=== PATIENT | female | born 1960 | race Caucasian/White ===

== ENCOUNTER 2017-02-04 08:20 | Day surgery (SDC) | payer BC ==
[~2017-02-04 08:20] MED LIST: Lactated Ringers 1,000 ML IV SCH; Lidocaine 1% 2 ML SDV ONE; Lidocaine 1%/Sod Bicarbonate in NS 8.4% 1 ML Syringe IV PRN; Midazolam 1 MG/ML 2 ML SDV ONE; Propofol 200 MG/20 ML SDV ONE; Sodium Chloride 0.9% 10 ML Syringe FLUSH PRN; fentaNYL 100 MCG/2 ML SDV ONE
--- NOTE | 2017-02-04 08:51 | PCM.PREANE ---
Preanesthetic Assessment - Anesthesia/Transfusion/Family Hx Type of Transfusion Reactions: Reports: Unknown - Physical Assessment Height: 1.65 m Weight: 113.398 kg - Allergies Allergies/Adverse Reactions: Allergies Allergy/AdvReac Type Severity Reaction Status Date / Time amoxicillin Allergy Hives Verified 02/03/17 15:14 amoxicillin trihydrate Allergy Hives Verified 12/30/16 18:17 [From Augmentin] potassium clavulanate Allergy Hives Verified 12/30/16 18:17 [From Augmentin] PreAnesthesia Questionnaire HEENT History: Reports: Impaired vision, Sinusitis, Other (see below) Other HEENT History: pharyngitis, wears glasses Cardiovascular History: Reports: High cholesterol, Hypertension Respiratory History: Reports: Other (see below) Other Respiratory History: cough Gastrointestinal History: Reports: Other (see below) 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 (see below) Other OB/BYN History: hot flashes Musculoskeletal History: Reports: Other (see below) Other Musculoskeletal History: R foot pain, back pain, R knee pain Neurological History: Reports: None Psychiatric History: Reports: Anxiety, Depression Endocrine/Metabolic History: Reports: None Hematologic History: Reports: Anemia Immunologic History: Reports: None Oncologic (Cancer) History: Reports: None Dermatologic History: Reports: Other (see below) Other Dermatologic History: eczema, sebaceous cyst, viral warts, plantar wart - Infectious Disease History Infectious Disease History: Reports: Chicken pox - Past Surgical History Head Surgeries/Procedures: Reports: None HEENT Surgical History: Reports: Tonsillectomy GI Surgical History: Reports: Appendectomy, Bariatric procedure, Cholecystectomy , Other (see below) Other GI Surgeries/Procedures: Lapband Female Surgical History: Reports: Hysterectomy, Oophorectomy, Tubal ligation Musculoskeletal Surgical History: Reports: Arthroscopic knee, Other (see below) Other Musculoskeletal Surgeries/Procedures:: right elbow surgery-pinches nerve, knee surgery - SUBSTANCE USE Smoking Status *Q: Never Smoker Second Hand Smoke Exposure: No Days Per Week of Alcohol Use: 7 Recreational Drug Use History: No - HOME MEDS Home Medications: Home Meds Enalapril Maleate [Enalapril Maleate] 20 mg PO DAILY 02/03/17 [History] - CURRENT (IN HOUSE) MEDS Current Meds: Current Medications Lactated Ringer's (Ringers, Lactated) 1,000 mls @ 125 mls/hr IV ASDIRECTED DARIA Lidocaine/Sodium Bicarbonate (Buffered Lidocaine 1% In Ns 8.4%) 0.25 ml IV ONETIME PRN PRN Reason: Prior to IV Start Sodium Chloride (Saline Flush) 10 ml FLUSH ASDIRECTED PRN PRN Reason: Keep Vein Open Discontinued Medications Fentanyl (Sublimaze) Confirm Administered Dose 100 mcg .ROUTE .STK-MED ONE Stop: 02/04/17 07:48 Lidocaine HCl (Lidocaine 1%) Confirm Administered Dose 6 ml .ROUTE .STK-MED ONE Stop: 02/04/17 07:47 Midazolam HCl (Versed 1 Mg/Ml) Confirm Administered Dose 2 mg .ROUTE .STK-MED ONE Stop: 02/04/17 07:48 Propofol (Diprivan 20 Ml) Confirm Administered Dose 200 mg .ROUTE .STK-MED ONE Stop: 02/04/17 07:48 Preanesthetic Assessment - ANESTHESIA/TRANSFUSION/FAMILY HX Anesthesia/Transfusion History: No Prior Transfusion(s), Prior Anesthesia (+ PONV from hand surgery & slow to wake up from gallbladder surgery) Type of Anesthesia Reaction: Denies: Allergy, Anesthesia Awareness, Excessive Somnolence, Excessive Nausea/Vomiting, Excessive Itching, Excessive Shivering, Malignant Hyperthermia, Malignant Hyperthermia, Family History, Pseudocholinesterase Deficiency, Pseudocholinesterase Deficiency, Family History of, Urinary Retention, Unknown, Other (see below) Family History of Anesthesia Reaction: No Intubation History: Unknown Type of Transfusion Reactions: Reports: Unknown - REVIEW OF SYSTEMS Constitutional: Reports: no symptoms 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 Respiratory: Reports: no symptoms (quit smoking 21 years ago.) Cardiovascular: Reports: blood pressure problem, dyspnea on exertion GI: Reports: no symptoms (laparoscopic gastric banding noted.) Other: Reports: Easy Bruising - PHYSICAL ASSESSMENT HR: 81 O2 Sat by Pulse Oximetry: 95 RR: 16 BP: 120/76 Temp: 36.7 C Height: 1.65 m Weight: 113.852 kg NPO Status Date: 02/03/17 NPO Status Time: 23:35 ASA Class: 3 Mental Status: Alert & Oriented x3 Airway Class: Mallampati = 2 Dentition: Reports: Gillis(s), Missing Tooth/Teeth Thyro-Mental Finger Breadths: 3 Mouth Opening Finger Breadths: 3 ROM/Head Extension: Full Respiratory Status: lungs clear to auscultation bilaterally Cardiovascular Status: regular rate & rhythm, normal S1, S2, no murmur, blood pressure WNL - ALLERGIES Allergies/Adverse Reactions: Allergies Allergy/AdvReac Type Severity Reaction Status Date / Time amoxicillin Allergy Hives Verified 02/03/17 15:14 amoxicillin trihydrate Allergy Hives Verified 12/30/16 18:17 [From Augmentin] potassium clavulanate Allergy Hives Verified 12/30/16 18:17 [From Augmentin] - ANESTHESIA PLAN Preop Beta Ivanna: No Anesthesia Type Planned: MAC - ACKNOWLEDGEMENTS Pt an Appropriate Candidate for the Planned Anesthesia: Yes Alternatives and Risks of Anesthesia Discussed w Pt/Guardian: Yes Pt/Guardian Understands and Agrees with Anesthesia Plan: Yes
[2017-02-04] MEDS ORDERED: Lactated Ringers 1,000 ML ONE (10:41)
[2017-02-04] MEDS ORDERED: Propofol 200 MG/20 ML SDV ONE (10:46)
--- NOTE | 2017-02-04 10:52 | PCM48HPAN ---
Post Anesthesia Note - EVALUATION WITHIN 48HRS OF ANESTHETIC Vital Signs in Normal Range: Yes Patient Participated in Evaluation: Yes Respiratory Function Stable: Yes Airway Patent: Yes Cardiovascular Function Stable: Yes Hydration Status Stable: Yes Pain Control Satisfactory: Yes Nausea and Vomiting Control Satisfactory: Yes Mental Status Recovered: Yes
--- NOTE | 2017-02-04 10:52 | PCM.OPNOTE ---
- General Post-Op/Procedure Note Date of Surgery/Procedure: 02/04/17 Operative Procedure(s): 1. EGD with antral and GE junction biopsies x2 using cold forceps for each. 2. Colonoscopy with random rectal biopsies x2 and cold forceps Findings: 1. normal EGD 2. internal hemorrhoids otherwise normal colon Pre Op Diagnosis: 1. epigastric abdominal pain intermittent. 2. change in bowel habits Post-Op Diagnosis: internal hemorrhoids Anesthesia Technique: MAC, Moderate sedation Primary Surgeon: Romeo Corrales Pathology: 1. antral and GE junction biopsies 2. random rectal biopsies EBL in mLs: 0 Complications: None Condition: Good Free Text/Narrative:: After adequate IV sedation and analgesia was obtained the patient was placed on her left side. Through a bite block a lubricated upper endoscope was inserted into the esophagus and advanced towards the stomach without difficulty. Air was given here. The scope was then directed through the antrum and into the duodenum. The second, and first part sof the duodenum were endoscopically normal with no inflammation or inflammatory changes. The antrum and body of the stomach were unremarkable as well. In the retroflexed view there was no hiatal hernia. The fundus and cardiac, regions were unremarkable. I took 2 random biopsies of the antrum for histologic review. The scope was withdrawn to the GE junction, which were sharp. This area was normal, but I took 2 biopsies for histology. Gear Shaper Set Up Operator photographs were taken for the patient and for the record. Perianal inspection digital rectal examination were performed and were remarkable for uncomplicated internal hemorrhoids. A lubricated colonoscope was inserted in the rectum and advanced to the cecum without difficulty. The bowel preparation was adequate. The cecum, right colon, transverse, and descending colons were endoscopically normal with no mass, lesions or inflammatory changes seen. The sigmoid and rectum were unremarkable as well. Because of her history I took 2 random biopsies of the rectum for review. Air was removed, as I finished the procedure, which she tolerated well. Gear Shaper Set Up Operator photographs were taken of the colon, rectum. For the record and for the patient.
[2017-02-04 10:55] VITALS: BP 124/83
== END 2017-02-04 11:20 | disposition home or self-care (01) ==
LOC: JD.SDS 08:20
PROVIDERS: ATTEND Surgery
PROC: 0DB68ZZ Excision of Stomach, Via Natural or Artificial Opening Endoscopic (ICD-10-PCS; principal; 2017-02-04)
DX: K21.0 Gastro-esophageal reflux disease with esophagitis (principal); K29.50 Unspecified chronic gastritis without bleeding; I10 Essential (primary) hypertension; Z88.0 Allergy status to penicillin; Z79.899 Other long term (current) drug therapy; Z98.84 Bariatric surgery status; Z98.51 Tubal ligation status; Z90.49 Acquired absence of other specified parts of digestive tract; Z90.710 Acquired absence of both cervix and uterus; Z90.721 Acquired absence of ovaries, unilateral; Z90.89 Acquired absence of other organs; Z98.890 Other specified postprocedural states; Z87.891 Personal history of nicotine dependence
CPT/HCPCS: 43239; 45380; 88305; J2250; J3010; J7120; J2704

== ENCOUNTER 2017-12-28 09:15 | Inpatient (IN) | payer BC ==
[~2017-12-28 09:15] MED LIST changes: +Bisacodyl 5 MG Tab PO PRN; +Ketorolac 15 MG/ML SDV IVPUSH PRN; -Lactated Ringers 1,000 ML IV SCH; -Lidocaine 1% 2 ML SDV ONE; +Magnesium Hydroxide 400 MG/5 ML Susp 30 ML Cup PO PRN; -Midazolam 1 MG/ML 2 ML SDV ONE; +Morphine 2 MG/ML Syringe IVPUSH PRN; +Naloxone 0.4 MG/ML SDV IVPUSH PRN; -Propofol 200 MG/20 ML SDV ONE; +Sennosides 8.6 MG Tab PO PRN; -fentaNYL 100 MCG/2 ML SDV ONE
[2017-12-28] MEDS: Lactated Ringers 1,000 ML IV SCH ×2 (11:10→15:15)
[2017-12-28] MEDS ORDERED: Clindamycin Phosphate 900 MG in Sodium Chloride 0.9% 100 ML IV ONE (11:22)
--- NOTE | 2017-12-28 11:34 | PCM.PREANE ---
Preanesthetic Assessment - Anesthesia/Transfusion/Family Hx Anesthesia History: Prior Anesthesia Reaction (NAUSEA) Family History of Anesthesia Reaction: No Transfusion History: No Prior Transfusion(s) Type of Transfusion Reactions: Reports: Unknown - Review of Systems General: No Symptoms Pulmonary: No Symptoms Cardiovascular: No Symptoms Gastrointestinal: No Symptoms Neurological: No Symptoms Other: Reports: None - Physical Assessment NPO Status Date: 12/27/17 NPO Status Time: 00:00 Pulse: 82 O2 Sat by Pulse Oximetry: 94 Respiratory Rate: 16 Blood Pressure: 114/84 Temperature: 37.3 C Height: 1.65 m Weight: 105.233 kg ASA Class: 2 Mental Status: Alert & Oriented x3 Airway Class: Mallampati = 1 Dentition: Reports: Normal Dentition, [place](s) Thyro-Mental Finger Breadths: 3 Mouth Opening Finger Breadths: 3 ROM/Head Extension: Full Lungs: Clear to Auscultation, Normal Respiratory Effort Cardiovascular: Regular Rate, Regular Rhythm, No Murmurs - Lab Values: Laboratory Last Values MRSA (PCR) Negative 12/08/17 16:46 - Imaging/EKG Impressions: ON CHART SINUS RHYTHM - Allergies Allergies/Adverse Reactions: Allergies Allergy/AdvReac Type Severity Reaction Status Date / Time amoxicillin Allergy Hives Verified 12/25/17 10:48 amoxicillin trihydrate Allergy Hives Verified 12/25/17 10:48 [From Augmentin] potassium clavulanate Allergy Hives Verified 12/25/17 10:48 [From Augmentin] - Blood Blood Available: Yes Product(s) Available: PRBC - Anesthesia Plan Pre-Op Medication Ordered: None - Acknowledgements Anesthesia Type Planned: Spinal Pt an Appropriate Candidate for the Planned Anesthesia: Yes Alternatives and Risks of Anesthesia Discussed w Pt/Guardian: Yes Pt/Guardian Understands and Agrees with Anesthesia Plan: Yes PreAnesthesia Questionnaire HEENT History: Reports: Impaired Vision, Otitis Media, Sinusitis, Other (See Below) Other HEENT History: pharyngitis, wears glasses, streptococcal pharyngitis Cardiovascular History: Reports: High Cholesterol, Hypertension Respiratory History: Reports: Other (See Below) Other Respiratory History: cough Gastrointestinal History: Reports: Gastritis, Other (See Below) Other Gastrointestinal History: esophagitis, abdominal pain Genitourinary History: Reports: Other (See Below) Other Genitourinary History: urinary urgency 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 (See Below) Other OB/BYN History: hot flashes Musculoskeletal History: Reports: Arthritis, Osteoarthritis, Other (See Below) Other Musculoskeletal History: R foot pain, back pain, R knee pain Neurological History: Reports: None Psychiatric History: Reports: Anxiety, Depression Endocrine/Metabolic History: Reports: None Hematologic History: Reports: Anemia Immunologic History: Reports: None Oncologic (Cancer) History: Reports: None Dermatologic History: Reports: Other (See Below) Other Dermatologic History: eczema, sebaceous cyst, viral warts, plantar wart - Infectious Disease History Infectious Disease History: Reports: Chicken Pox - Past Surgical History Head Surgeries/Procedures: Reports: None HEENT Surgical History: Reports: Tonsillectomy Cardiovascular Surgical History: Reports: None Respiratory Surgical History: Reports: None GI Surgical History: Reports: Appendectomy, Bariatric Procedure, Cholecystectomy , Other (See Below) Other GI Surgeries/Procedures: Lapband Female Surgical History: Reports: Hysterectomy, Oophorectomy, Tubal Ligation Male Surgical History: Reports: None Endocrine Surgical History: Reports: None Neurological Surgical History: Reports: None Musculoskeletal Surgical History: Reports: Arthroscopic Knee, Other (See Below) Other Musculoskeletal Surgeries/Procedures:: right elbow surgery-pinches nerve, knee surgery Oncologic Surgical History: Reports: None - SUBSTANCE USE Smoking Status *Q: Never Smoker Second Hand Smoke Exposure: No Days Per Week of Alcohol Use: 0 Number of Drinks Per Day: 0 Total Drinks Per Week: 0 Recreational Drug Use History: No - HOME MEDS Home Medications: Home Meds Enalapril Maleate 20 mg PO DAILY 02/03/17 [History] Cholecalciferol (Vitamin D3) [Vitamin D3] 5,000 unit PO DAILY 12/25/17 [History] Omeprazole [Omeprazole] 20 mg PO BID 12/25/17 [History] - CURRENT (IN HOUSE) MEDS Current Meds: Current Medications Bisacodyl (Dulcolax) 5 mg PO DAILY PRN PRN Reason: Constipation Morphine Sulfate 8 mg/Epinephrine HCl 0.3 mg/Ketorolac Tromethamine 30 mg/ Sodium Chloride 37.9 ml 0 mg .XX ONETIME ONE Stop: 12/28/17 11:31 Cyclobenzaprine HCl (Flexeril) 10 mg PO TID PRN PRN Reason: Spasms Docusate Sodium (Colace) 100 mg PO BID DARIA Famotidine (Pepcid) 20 mg PO Q12H [facility] Lactated Ringer's (Ringers, Lactated) 1,000 mls @ 125 mls/hr IV ASDIRECTED [facility] Clindamycin Phosphate 900 mg/ (Sodium Chloride) 106 mls @ 200 mls/hr IV Q6H DARIA Stop: 12/29/17 07:16 Clindamycin Phosphate 900 mg/ (Sodium Chloride) 106 mls @ 100 mls/hr IV ONETIME ONE Stop: 12/28/17 12:25 Ketorolac Tromethamine (Toradol) 15 mg IVPUSH Q6H PRN PRN Reason: Pain Lidocaine/Sodium Bicarbonate (Buffered Lidocaine 1% In Ns 8.4%) 0.25 ml IV ONETIME PRN PRN Reason: Prior to IV Start Stop: 12/28/17 18:00 Magnesium Hydroxide (Milk Of Magnesia) 30 ml PO BID PRN PRN Reason: Constipation Morphine Sulfate (Morphine) 2 mg IVPUSH Q2H PRN PRN Reason: Breakthrough Pain Naloxone HCl (Narcan) 0.1 mg IVPUSH Q5M PRN PRN Reason: Oversedation Ondansetron HCl (Zofran) 4 mg IVPUSH Q6H PRN PRN Reason: Nausea/Vomiting Oxycodone/Acetaminophen (Percocet 325-5 Mg) 1 - 2 tab PO Q4H PRN PRN Reason: Pain Rivaroxaban (Xarelto) 10 mg PO DAILY [facility] Senna (Senna) 8.6 mg PO BID PRN PRN Reason: Constipation Sodium Chloride (Saline Flush) 10 ml FLUSH ASDIRECTED PRN PRN Reason: Keep Vein Open
[2017-12-28] MEDS ORDERED: Morphine PF 1 MG/ML Amp ONE (11:42)
[2017-12-28] MEDS ORDERED: Propofol 200 MG/20 ML SDV ONE ×5 (11:51→14:14)
[2017-12-28] MEDS ORDERED: fentaNYL 100 MCG/2 ML SDV ONE (11:51)
[2017-12-28] MEDS ORDERED: Lidocaine 1% 4 ML ONE (11:51)
[2017-12-28] MEDS ORDERED: Midazolam 1 MG/ML 2 ML SDV ONE (11:51)
[2017-12-28] MEDS ORDERED: Ondansetron 4 MG/2 ML SDV ONE (11:51)
[2017-12-28] MEDS ORDERED: ePHEDrine/Normal Saline 25 MG/5 ML Syringe ONE (12:47)
[2017-12-28] MEDS ORDERED: Phenylephrine/Normal Saline 100 MCG/ML 10 ML Syringe ONE (12:59)
[2017-12-28] MEDS: Bupivacaine 0.25% 30 ML SDV ONE ×2 (13:09→13:56)
[2017-12-28] MEDS: Iodine/Sodium Iodide 2% Tincture 30 ML Bottle ONE ×2 (13:10→13:45)
[2017-12-28] MEDS: Clindamycin Phosphate 900 MG/6 ML AdvVial ONE ×2 (13:10→13:52)
[2017-12-28] MEDS: MORPHINE ONE ×8 (13:11→13:54)
[2017-12-28] MEDS: SODIUM CHLORIDE 0.9% ONE ×8 (13:11→13:54)
[2017-12-28] MEDS: EPINEPHRINE ONE ×8 (13:11→13:54)
[2017-12-28] MEDS: KETOROLAC ONE ×8 (13:11→13:54)
[2017-12-28] MEDS: Vancomycin 1 GM SDV ONE ×2 (13:12→13:57)
[2017-12-28] MEDS ORDERED: Morphine 4 MG/ML Syringe IVPUSH PRN (13:27)
[2017-12-28] MEDS ORDERED: Meperidine PF 50 MG/ML Syringe IVPUSH PRN (13:51)
[2017-12-28] MEDS ORDERED: HYDROmorphone 0.5 MG/0.5 ML Syringe IVPUSH PRN (13:51)
[2017-12-28] MEDS ORDERED: diphenhydrAMINE 50 MG/ML SDV IVPUSH PRN (13:51)
[2017-12-28] MEDS ORDERED: fentaNYL 100 MCG/2 ML SDV IVPUSH PRN (13:51)
[2017-12-28] MEDS ORDERED: ePHEDrine 50 MG/ML SDV IVPUSH PRN (13:51)
[2017-12-28] MEDS ORDERED: Ondansetron 4 MG/2 ML SDV IVPUSH PRN (13:51)
--- NOTE | 2017-12-28 14:49 | PCM.POSTAN ---
POST ANESTHESIA ASSESSMENT - MENTAL STATUS Mental Status: Alert, Oriented - VITAL SIGNS Pulse Rate: 81 SaO2: 95 Resp Rate: 14 Blood Pressure: 105/66 Temperature: 95 C - RESPIRATORY Respiratory Status: Respiratory Rate WNL, Airway Patent, O2 Saturation Stable - CARDIOVASCULAR CV Status: Pulse Rate WNL, Blood Pressure Stable - PAIN Pain Score: 0 - POST OP HYDRATION Hydration Status: Adequate & Stable
--- NOTE | 2017-12-28 15:33 | PCM.CONS ---
H&P History of Present Illness - General Date of Service: 12/28/17 Admit Problem/Dx: Admission Diagnosis/Problem Admission Diagnosis/Problem Osteoarthritis of hip Source of Information: Patient, Provider, RN, RN Notes Reviewed, Other ( surgical notes ) History Limitations: Reports: No Limitations - History of Present Illness Initial Comments - Free Text/Narative: Lela Montano is a 57 yo female patient of Dr. Rivas who is post-operative day 0 of right FRANCINE. Hospital medicine was consulted for post-operative medical care. At this time she is resting comfortably in bed. Pain is controlled, although her legs are still numb. She denies any chest pain, shortness of breath , palpitations,or vomiting. She is having some mild nausea and zofran is given She carries a history of: HLD, HTN, OA, exzema, depression, esophagitis, aneamia , arthritis, anxiety. She was never a smoker. She is a full code. Her primary care provider is Nella Mercado, nurse practitioner at [facility]. Right Hip Pain Score (Numeric/FACES): 7 - Related Data Allergies/Adverse Reactions: Allergies Allergy/AdvReac Type Severity Reaction Status Date / Time amoxicillin Allergy Hives Verified 12/25/17 10:48 amoxicillin trihydrate Allergy Hives Verified 12/25/17 10:48 [From Augmentin] potassium clavulanate Allergy Hives Verified 12/25/17 10:48 [From Augmentin] Home Medications: Home Meds Enalapril Maleate 20 mg PO DAILY 02/03/17 [History] Cholecalciferol (Vitamin D3) [Vitamin D3] 5,000 unit PO DAILY 12/25/17 [History] Omeprazole [Omeprazole] 20 mg PO BID 12/25/17 [History] Venlafaxine [Effexor] 37.5 mg PO DAILY 12/28/17 [History] Past Medical History HEENT History: Reports: Impaired Vision, Otitis Media, Sinusitis, Other (See Below) Other HEENT History: pharyngitis, wears glasses, streptococcal pharyngitis Cardiovascular History: Reports: High Cholesterol, Hypertension Respiratory History: Reports: Other (See Below) Other Respiratory History: cough Gastrointestinal History: Reports: Gastritis, Other (See Below) Other Gastrointestinal History: esophagitis, abdominal pain Genitourinary History: Reports: Other (See Below) Other Genitourinary History: urinary urgency [employer] OPEN DIE History: Reports: Other (See Below) Other OB/BYN History: hot flashes Musculoskeletal History: Reports: Arthritis, Osteoarthritis, Other (See Below) Other Musculoskeletal History: R foot pain, back pain, R knee pain Neurological History: Reports: None Psychiatric History: Reports: Anxiety, Depression Endocrine/Metabolic History: Reports: None Hematologic History: Reports: Anemia Immunologic History: Reports: None Oncologic (Cancer) History: Reports: None Dermatologic History: Reports: Other (See Below) Other Dermatologic History: eczema, sebaceous cyst, viral warts, plantar wart - Infectious Disease History Infectious Disease History: Reports: Chicken Pox - Past Surgical History Head Surgeries/Procedures: Reports: None HEENT Surgical History: Reports: Tonsillectomy Cardiovascular Surgical History: Reports: None Respiratory Surgical History: Reports: None GI Surgical History: Reports: Appendectomy, Bariatric Procedure, Cholecystectomy , Other (See Below) Other GI Surgeries/Procedures: Lapband Female Surgical History: Reports: Hysterectomy, Oophorectomy, Tubal Ligation Male Surgical History: Reports: None Endocrine Surgical History: Reports: None Neurological Surgical History: Reports: None Musculoskeletal Surgical History: Reports: Arthroscopic Knee, Other (See Below) Other Musculoskeletal Surgeries/Procedures:: right elbow surgery-pinches nerve, knee surgery Oncologic Surgical History: Reports: None Social & Family History - Family History Family Medical History: Noncontributory - Tobacco Use Smoking Status *Q: Never Smoker Second Hand Smoke Exposure: No - Caffeine Use Caffeine Use: Reports: Coffee - Alcohol Use Days Per Week of Alcohol Use: 0 Number of Drinks Per Day: 0 Total Drinks Per Week: 0 - Recreational Drug Use Recreational Drug Use: No Drug Use in Last 12 Months: No H&P Review of Systems - Review of Systems: Review Of Systems: See Below General: Reports: No Symptoms HEENT: Reports: No Symptoms Pulmonary: Reports: No Symptoms Cardiovascular: Reports: No Symptoms Gastrointestinal: Reports: Nausea. Denies: Abdominal Pain, Constipation, Diarrhea, Difficulty Swallowing, Vomiting Genitourinary: Reports: No Symptoms Musculoskeletal: Reports: Joint Pain (Right hip ) Skin: Reports: No Symptoms Psychiatric: Reports: No Symptoms Neurological: Reports: No Symptoms Hematologic/Lymphatic: Reports: No Symptoms Immunologic: Reports: No Symptoms Exam - Exam Exam: See Below - Vital Signs Vital Signs: Last Vital Signs Temp 203 F H 02/05/18 14:48 Pulse 81 12/28/17 14:48 Resp 10 L 12/28/17 15:15 BP 102/72 12/28/17 15:15 Pulse Ox 93 L 12/28/17 15:15 Weight: 232 lb - Exam Quality Assessment: Supplemental Oxygen (2L), Urinary Catheter, DVT Prophylaxis General: Alert, Oriented, Cooperative. No: Mild Distress HEENT: PERRLA, Hearing Intact, Mucosa Moist & [place], Nares Patent, Normal Nasal Septum, Posterior Pharynx Clear, Conjunctiva Clear, EOMI, EACs Clear, TMs Clear Neck: Supple, Trachea Midline. No: JVD Lungs: Clear to Auscultation, Normal Respiratory Effort Cardiovascular: Regular Rate, Regular Rhythm GI/Abdominal Exam: Normal Bowel Sounds, Soft, Non-Tender, No Organomegaly, No Distention, No Abnormal Bruit, No Mass, Pelvis Stable (Female) Exam: Deferred Rectal (Female) Exam: Deferred Back Exam: Normal Inspection, Full Range of Motion Extremities: No Pedal Edema, Normal Capillary Refill, Leg Pain (right hip), Limited Range of Motion, Other (SIMONE bandage in place on right leg. Bandage is dry and intact. Cooling pack in place ) Peripheral Pulses: 2+: Radial (L), Radial (R), Posterior Tibial (L), Posterior Tibial (R), Dorsalis Pedis (L), Dorsalis Pedis (R) Skin: Warm, Dry, Intact Neurological: Cranial Nerves Intact (Grossly) Neuro Extensive - Mental Status: Alert, Oriented x3, Normal Mood/Affect, Normal Cognition, Memory Intact Psychiatric: Alert, Normal Affect, Normal Mood - Patient Data Lab Results Last 24 hrs: Laboratory Results - last 24 hr 12/28/17 Range/Units 11:10 Blood Type A POSITIVE Gel Antibody Screen Negative Consult PN Assessment/Plan POD#: 0 Procedures: Procedures AGENT NOS ASSAY W/OPTIC (12/24/16) ASSAY OF AMYLASE (12/23/16) ASSAY OF FREE THYROXINE (09/30/17) ASSAY OF LIPASE (12/23/16) ASSAY OF PREALBUMIN (12/15/17) ASSAY OF SERUM ALBUMIN (12/15/17) ASSAY OF TROPONIN QUANT (08/19/15) ASSAY THYROID STIM HORMONE (09/30/17) C-REACTIVE PROTEIN (12/30/16) C-REACTIVE PROTEIN HS (07/24/16) CHEST X-RAY 1 VIEW FRONTAL (08/19/15) COLONOSCOPY AND BIOPSY (02/04/17) COMPLETE CBC W/AUTO DIFF WBC (09/30/17) COMPREHEN METABOLIC PANEL (09/30/17) CT ABD & PELV W/CONTRAST (05/30/14) CT ABD & PELVIS W/O CONTRAST (12/25/16) DRAIN/INJ JOINT/BURSA W/O US (06/05/17) EGD BIOPSY SINGLE/MULTIPLE (02/04/17) ELECTROCARDIOGRAM TRACING (08/19/15) EMERGENCY DEPT VISIT (12/30/16) EMERGENCY DEPT VISIT (09/23/16) EMERGENCY DEPT VISIT (08/19/15) EMERGENCY DEPT VISIT (06/17/14) EMERGENCY DEPT VISIT (05/30/14) EXC H-F-NK-SP B9+SHAYNA >4 CM (05/18/15) HPYLORI STOOL IA (12/24/16) HYDRATE IV INFUSION ADD-ON (12/30/16) HYDRATION IV INFUSION INIT (08/19/15) LIPID PANEL (07/24/16) METABOLIC PANEL TOTAL CA (12/15/17) MR-STAPH DNA AMP PROBE (04/23/15) PROTHROMBIN TIME (12/15/17) ROUTINE VENIPUNCTURE (12/30/16) STOOL CULTR AEROBIC BACT EA (12/24/16) THER/PROPH/DIAG INJ IV PUSH (12/30/16) THER/PROPH/DIAG INJ SC/IM (09/23/16) THROMBOPLASTIN TIME PARTIAL (12/15/17) TISSUE EXAM BY PATHOLOGIST (02/04/17) TX/PRO/DX INJ NEW DRUG ADDON (06/17/14) URINALYSIS AUTO W/O SCOPE (08/14/15) URINALYSIS AUTO W/SCOPE (12/30/16) URINE CULTURE/COLONY COUNT (12/15/17) X-RAY EXAM CHEST 2 VIEWS (12/15/17) X-RAY EXAM OF ABDOMEN (12/30/16) X-RAY EXAM OF FEMUR 2/> (09/19/16) X-RAY EXAM SERIES ABDOMEN (05/30/14) (1) S/P total hip arthroplasty SNOMED Code(s): 480771563920 Code(s): Z96.649 - PRESENCE OF UNSPECIFIED ARTIFICIAL HIP JOINT Priority: High Current Visit: Yes Qualifiers: Laterality: right Qualified Code(s): Z96.641 - Presence of right artificial hip joint (2) Osteoarthritis SNOMED Code(s): 599998524 Code(s): M19.90 - UNSPECIFIED OSTEOARTHRITIS, UNSPECIFIED SITE Priority: High Current Visit: Yes Qualifiers: Osteoarthritis location: hip Osteoarthritis type: primary Laterality: right Qualified Code(s): M16.11 - Unilateral primary osteoarthritis, right hip (3) HLD (hyperlipidemia) SNOMED Code(s): 49564203 Code(s): E78.5 - HYPERLIPIDEMIA, UNSPECIFIED Priority: Low Current Visit : No Qualifiers: Hyperlipidemia type: unspecified Qualified Code(s): E78.5 - Hyperlipidemia , unspecified (4) HTN (hypertension) SNOMED Code(s): 98114698 Code(s): I10 - ESSENTIAL (PRIMARY) HYPERTENSION Priority: Low Current Visit: No Qualifiers: Hypertension type: unspecified Qualified Code(s): I10 - Essential (primary ) hypertension (5) Gastritis SNOMED Code(s): 7377696 Code(s): K29.70 - GASTRITIS, UNSPECIFIED, WITHOUT BLEEDING Priority: Low Current Visit: No Qualifiers: Gastritis type: unspecified gastritis Chronicity: unspecified Gastritis bleeding: presence of bleeding unspecified Qualified Code(s): K29.70 - Gastritis, unspecified, without bleeding (6) Esophagitis SNOMED Code(s): 30449217 Code(s): K20.9 - ESOPHAGITIS, UNSPECIFIED Priority: Low Current Visit: No (7) Arthritis SNOMED Code(s): 2477114 Code(s): M19.90 - UNSPECIFIED OSTEOARTHRITIS, UNSPECIFIED SITE Priority: Low Current Visit: No (8) Anxiety SNOMED Code(s): 75070955 Code(s): F41.9 - ANXIETY DISORDER, UNSPECIFIED Priority: Low Current Visit: No (9) Anemia SNOMED Code(s): 991507308 Code(s): D64.9 - ANEMIA, UNSPECIFIED Priority: Low Current Visit: No Qualifiers: Anemia type: unspecified type Qualified Code(s): D64.9 - Anemia, unspecified (10) Eczema SNOMED Code(s): 82485277 Code(s): L30.9 - DERMATITIS, UNSPECIFIED Priority: Low Current Visit: No Qualifiers: Eczema type: unspecified Qualified Code(s): L30.9 - Dermatitis, unspecified (11) Other specified depressive episodes SNOMED Code(s): 17146070 Code(s): F32.89 - OTHER SPECIFIED DEPRESSIVE EPISODES Priority: Low Current Visit: No (12) Nausea after anesthesia SNOMED Code(s): 510170610 Code(s): T88.59XA - OTHER COMPLICATIONS OF ANESTHESIA, INITIAL ENCOUNTER; R11.0 - NAUSEA Priority: Medium Current Visit: Yes Qualifiers: Encounter type: initial encounter Qualified Code(s): T88.59XA - Other complications of anesthesia, initial encounter; R11.0 - Nausea; R11.0 - Nausea Problem List Initiated/Reviewed/Updated: Yes Plan: I/P: Acute: S/P right total hip arthroplasty - post-operative day 0 -DVT prophylaxis and pain management per primary care team -PT/OT -IS/RT -Monitor oxygen saturation -Titrate oxygen as needed -Vital signs stable -Monitor labs -Pre-operative Hgb was 15.1 Osteoarthritis of right hip -Pain management per primary care team Post-operative nasuea -Zofran given -Continue to monitor Chronic: HLD HTN gastritis esophagitis Arthritis anxiety depression anemia eczema Plan: CM for discharge planning GI prophylaxis Home medications as indicated Other orders as listed above Routine AM labs She is a full code. Her PCP is Nella Mercado, Nurse practitioner at [facility]. Thank you for allowing us to participate in the care of this patient!! Total time spent with patient 30 minutes Requesting Provider: Dr. Rivas Date Consult Requested: 12/28/17 Reason for Consult: Post-operative medical management Patient History Reviewed: Yes Admission H&P Reviewed: Yes Time Spent (in minutes): 30
[2017-12-28] MEDS: Ondansetron 4 MG/2 ML SDV IVPUSH PRN (15:59)
--- NOTE | 2017-12-28 16:33 | CR ---
Pelvis and right hip: AP view of the pelvis was obtained as well as lateral view of the right hip. Comparison: Prior right femur study showing hip dated 08/27/16. Right hip prosthesis is seen. Components are aligned. Underlying bony structures are intact. Soft tissue air is noted from the surgical procedure. Impression: 1. Satisfactory postop radiographic appearance of recently placed right hip prosthesis. Diagnostic code #2
[2017-12-28] MEDS: Clindamycin Phosphate 900 MG in Dextrose 5% in Water 100 ML IV SCH ×4 (17:51→23:14)
[2017-12-28] MEDS ORDERED: Scopolamine 1 MG Transdermal Patch TRDERM SCH (19:00)
[2017-12-28] MEDS ORDERED: Famotidine 20 MG Tab PO SCH (21:00)
[2017-12-28] MEDS: Docusate Sodium 100 MG Cap PO SCH (21:13)
[2017-12-28] MEDS: Pantoprazole 40 MG Tab.CR PO SCH (21:13)
[2017-12-28] MEDS: Cyclobenzaprine 10 MG Tab PO PRN (21:24)
[2017-12-29] MEDS: Acetaminophen/oxyCODONE 325-5 MG Tab PO PRN ×2 (05:20→10:06)
[2017-12-29] MEDS: Cyclobenzaprine 10 MG Tab PO PRN (05:20)
[2017-12-29] MEDS: Clindamycin Phosphate 900 MG in Dextrose 5% in Water 100 ML IV SCH ×4 (05:28→11:30)
--- NOTE | 2017-12-29 07:45 | PCM.CONSN ---
- General Info Date of Service: 12/29/17 Admission Dx/Problem (Free Text): Admission Diagnosis/Problem Admission Diagnosis/Problem Osteoarthritis of hip POD #1 Rt FRANCINE Doing well, pain controlled. Did not sleep well however "not used to sleeping on my back". Nausea resolved since scop patch applied last evening. Voiding and does have appetite this morning. Plans for DC home today. Functional Status: Reports: Pain Controlled, Tolerating Diet, Ambulating, Urinating, Incentive Spirometry. Denies: New Symptoms - Review of Systems General: Reports: No Symptoms HEENT: Reports: No Symptoms Pulmonary: Reports: No Symptoms Cardiovascular: Reports: No Symptoms Gastrointestinal: Reports: No Symptoms Genitourinary: Reports: No Symptoms Musculoskeletal: Reports: Leg Pain Skin: Reports: No Symptoms Neurological: Reports: No Symptoms Psychiatric: Reports: No Symptoms - Patient Data Vitals - Most Recent: Last Vital Signs Temp 98.6 F 12/29/17 03:14 Pulse 78 12/29/17 03:16 Resp 16 12/29/17 03:14 BP 103/60 12/29/17 03:16 Pulse Ox 98 12/29/17 03:16 Weight - Most Recent: 241 lb 9.6 oz I&O - Last 24 Hours: Intake & Output 12/28/17 12/29/17 12/29/17 22:59 06:59 14:59 Intake Total 300 900 Output Total 150 450 Balance 150 450 Lab Results Last 24 Hours: Laboratory Results - last 24 hr 12/28/17 12/29/17 12/29/17 Range/Units 11:10 06:05 06:05 WBC 7.01 (3.98-10.04) K/mm3 RBC 3.82 L (3.98-5.22) M/mm3 Hgb 10.9 L (11.2-15.7) gm/L Hct 34.0 L (34.1-44.9) % MCV 89.0 (79.4-94.8) fl MCH 28.5 (25.6-32.2) pg MCHC 32.1 L (32.2-35.5) g/dl RDW Std Deviation 44.2 (36.4-46.3) fL Plt Count 229 (182-369) K/mm3 MPV 9.9 (9.4-12.3) fl Sodium 136 (136-145) mEq/L Potassium 4.2 (3.5-5.1) mEq/L Chloride 101 (98-107) mEq/L Carbon Dioxide 29 (21-32) mEq/L Anion Gap 10.2 (5-15) BUN 17 (7-18) mg/dL Creatinine 0.9 (0.55-1.02) mg/dL Est Cr Clr Drug Dosing 62.80 mL/min Estimated GFR (MDRD) > 60 (>60) mL/min BUN/Creatinine Ratio 18.9 H (14-18) Glucose 113 H (74-106) mg/dL Calcium 8.1 L (8.5-10.1) mg/dL Total Bilirubin 1.2 H (0.2-1.0) mg/dL AST 49 H (15-37) U/L ALT 49 (14-59) U/L Alkaline Phosphatase 67 (46-116) U/L Total Protein 5.7 L (6.4-8.2) g/dl Albumin 2.6 L (3.4-5.0) g/dl Globulin 3.1 gm/dL Albumin/Globulin Ratio 0.8 L (1-2) Blood Type A POSITIVE Gel Antibody Screen Negative Med Orders - Current: Current Medications Bisacodyl (Dulcolax) 5 mg PO DAILY PRN PRN Reason: Constipation Cholecalciferol (Vitamin D3) 5,000 units PO DAILY [facility] Cyclobenzaprine HCl (Flexeril) 10 mg PO TID PRN PRN Reason: Spasms Last Admin: 12/29/17 05:20 Dose: 10 mg Docusate Sodium (Colace) 100 mg PO BID [facility] Last Admin: 12/28/17 21:13 Dose: 100 mg Enalapril Maleate (Vasotec) 20 mg PO DAILY [facility] Clindamycin Phosphate 900 mg/ (Dextrose/Water) 106 mls @ 200 mls/hr IV Q6H DARIA Stop: 12/29/17 12:02 Last Admin: 12/29/17 05:28 Dose: 200 mls/hr Ketorolac Tromethamine (Toradol) 15 mg IVPUSH Q6H PRN PRN Reason: Pain Last Admin: 12/28/17 21:23 Dose: 15 mg Magnesium Hydroxide (Milk Of Magnesia) 30 ml PO BID PRN PRN Reason: Constipation Miscellaneous Information (Remove Patch) 1 ea TRDERM Q72H [facility] Morphine Sulfate (Morphine) 2 mg IVPUSH Q2H PRN PRN Reason: Breakthrough Pain Ondansetron HCl (Zofran) 4 mg IVPUSH Q6H PRN PRN Reason: Nausea/Vomiting Last Admin: 12/28/17 15:59 Dose: 4 mg Oxycodone/Acetaminophen (Percocet 325-5 Mg) 1 - 2 tab PO Q4H PRN PRN Reason: Pain Last Admin: 12/29/17 05:20 Dose: 2 tab Pantoprazole Sodium (Protonix) 40 mg PO BID [facility] Last Admin: 12/28/17 21:13 Dose: 40 mg Rivaroxaban (Xarelto) 10 mg PO DAILY [facility] Scopolamine (Scopolamine) 1 each TRDERM Q72H [facility] Last Admin: 12/28/17 18:48 Dose: 1 each Senna (Senna) 8.6 mg PO BID PRN PRN Reason: Constipation Sodium Chloride (Saline Flush) 10 ml FLUSH ASDIRECTED PRN PRN Reason: Keep Vein Open Venlafaxine HCl (Effexor) 37.5 mg PO DAILY [facility] Discontinued Medications Bupivacaine HCl (Marcaine 0.25%) Confirm Administered Dose 30 ml .ROUTE .STK- MED ONE Stop: 12/28/17 11:21 Last Admin: 12/28/17 13:56 Dose: 30 ml Clindamycin Phosphate (Cleocin) Confirm Administered Dose 900 mg .ROUTE .STK- MED ONE Stop: 12/28/17 11:21 Last Admin: 12/28/17 13:52 Dose: 900 mg Morphine Sulfate 8 mg/Epinephrine HCl 0.3 mg/Ketorolac Tromethamine 30 mg/ Sodium Chloride 37.9 ml 0 mg .XX ONETIME ONE Stop: 12/28/17 11:31 Last Admin: 12/28/17 13:54 Dose: 38.3 mg Diphenhydramine HCl (Benadryl) 25 mg IVPUSH Q6H PRN PRN Reason: pruritis Stop: 12/28/17 18:00 Ephedrine Sulfate (Ephedrine In Ns) Confirm Administered Dose 25 mg .ROUTE .STK- MED ONE Stop: 12/28/17 12:48 Ephedrine Sulfate (Ephedrine Sulfate) 5 mg IVPUSH ASDIRECTED PRN PRN Reason: Hypotension Stop: 12/28/17 18:00 Famotidine (Pepcid) 20 mg PO Q12H [facility] Fentanyl (Sublimaze) Confirm Administered Dose 100 mcg .ROUTE .STK-MED ONE Stop: 12/28/17 11:52 Fentanyl (Sublimaze) 50 mcg IVPUSH Q5M PRN PRN Reason: Pain Stop: 12/28/17 13:52 Hydromorphone HCl (Dilaudid) 0.5 mg IVPUSH Q15M PRN PRN Reason: severe pain Stop: 12/28/17 13:52 Lactated Ringer's (Ringers, Lactated) 1,000 mls @ 125 mls/hr IV ASDIRECTED DARIA Last Admin: 12/28/17 15:15 Dose: 125 mls/hr Clindamycin Phosphate 900 mg/ (Sodium Chloride) 106 mls @ 100 mls/hr IV ONETIME ONE Stop: 12/28/17 12:25 Last Admin: 12/28/17 16:11 Dose: Not Given Lidocaine HCl (Xylocaine-Mpf 1%) Confirm Administered Dose 4 mls @ as directed .ROUTE .STK-MED ONE Stop: 12/28/17 11:52 Iodine (Iodine 2% Mild Tincture) Confirm Administered Dose 30 ml .ROUTE .STK- MED ONE Stop: 12/28/17 11:21 Last Admin: 12/28/17 13:45 Dose: 18 ml Lidocaine/Sodium Bicarbonate (Buffered Lidocaine 1% In Ns 8.4%) 0.25 ml IV ONETIME PRN PRN Reason: Prior to IV Start Stop: 12/28/17 18:00 Last Admin: 12/28/17 11:09 Dose: 0.25 ml Meperidine HCl (Demerol) 12.5 mg IVPUSH ASDIRECTED PRN PRN Reason: Shivering Stop: 12/28/17 18:00 Midazolam HCl (Versed 1 Mg/Ml) Confirm Administered Dose 2 mg .ROUTE .STK-MED ONE Stop: 12/28/17 11:52 Morphine Sulfate (Morphine) 2 mg IVPUSH Q2H PRN PRN Reason: Breakthrough Pain Morphine Sulfate (Duramorph Pf) Confirm Administered Dose 1 mg .ROUTE .STK-MED ONE Stop: 12/28/17 11:43 Naloxone HCl (Narcan) 0.1 mg IVPUSH Q5M PRN PRN Reason: Oversedation Ondansetron HCl (Zofran) Confirm Administered Dose 4 mg .ROUTE .STK-MED ONE Stop: 12/28/17 11:52 Ondansetron HCl (Zofran) 4 mg IVPUSH ONETIME PRN PRN Reason: Nausea/Vomiting Stop: 12/28/17 18:00 Phenylephrine HCl (Phenylephrine In Ns 100 Mcg/Ml) Confirm Administered Dose 1 mg .ROUTE .STK-MED ONE Stop: 12/28/17 13:00 Propofol (Diprivan 20 Ml) Confirm Administered Dose 200 mg .ROUTE .STK-MED ONE Stop: 12/28/17 11:52 Propofol (Diprivan 20 Ml) Confirm Administered Dose 200 mg .ROUTE .STK-MED ONE Stop: 12/28/17 12:57 Propofol (Diprivan 20 Ml) Confirm Administered Dose 200 mg .ROUTE .STK-MED ONE Stop: 12/28/17 13:23 Propofol (Diprivan 20 Ml) Confirm Administered Dose 200 mg .ROUTE .STK-MED ONE Stop: 12/28/17 13:44 Propofol (Diprivan 20 Ml) Confirm Administered Dose 200 mg .ROUTE .STK-MED ONE Stop: 12/28/17 14:15 Tranexamic Acid (Cyklokapron) Confirm Administered Dose 1,000 mg .ROUTE .STK- MED ONE Stop: 12/28/17 11:21 Last Admin: 12/28/17 13:58 Dose: 1,000 mg Vancomycin HCl (Vancomycin) Confirm Administered Dose 1 gm .ROUTE .STK-MED ONE Stop: 12/28/17 11:21 Last Admin: 12/28/17 13:57 Dose: 1 gm - Exam Quality Assessment: DVT Prophylaxis General: Alert, Oriented, Cooperative, No Acute Distress HEENT: Pupils Equal, Pupils Reactive, EOMI, Mucous Membr. Moist/[place] Neck: Supple Lungs: Clear to Auscultation, Normal Respiratory Effort, Decreased Breath Sounds (bases) Cardiovascular: Regular Rate, Regular Rhythm GI/Abdominal Exam: Normal Bowel Sounds, Soft, Non-Tender. No: Guarding, Rebound (Female) Exam: Deferred Extremities: Normal Inspection, No Pedal Edema, Normal Capillary Refill, Other ( right thigh is soft; ice present to hip. Distally CMS is + and = bilat) Peripheral Pulses: 2+: Dorsalis Pedis (L), Dorsalis Pedis (R) Neurological: No New Focal Deficit Psy/Mental Status: Alert, Normal Affect, Normal Mood Consult PN Assessment/Plan POD#: 1 Procedures: Procedures AGENT NOS ASSAY W/OPTIC (12/24/16) ASSAY OF AMYLASE (12/23/16) ASSAY OF FREE THYROXINE (09/30/17) ASSAY OF LIPASE (12/23/16) ASSAY OF PREALBUMIN (12/15/17) ASSAY OF SERUM ALBUMIN (12/15/17) ASSAY OF TROPONIN QUANT (08/19/15) ASSAY THYROID STIM HORMONE (09/30/17) C-REACTIVE PROTEIN (12/30/16) C-REACTIVE PROTEIN HS (07/24/16) CHEST X-RAY 1 VIEW FRONTAL (08/19/15) COLONOSCOPY AND BIOPSY (02/04/17) COMPLETE CBC W/AUTO DIFF WBC (09/30/17) COMPREHEN METABOLIC PANEL (09/30/17) CT ABD & PELV W/CONTRAST (05/30/14) CT ABD & PELVIS W/O CONTRAST (12/25/16) DRAIN/INJ JOINT/BURSA W/O US (06/05/17) EGD BIOPSY SINGLE/MULTIPLE (02/04/17) ELECTROCARDIOGRAM TRACING (08/19/15) EMERGENCY DEPT VISIT (12/30/16) EMERGENCY DEPT VISIT (09/23/16) EMERGENCY DEPT VISIT (08/19/15) EMERGENCY DEPT VISIT (06/17/14) EMERGENCY DEPT VISIT (05/30/14) EXC H-F-NK-SP B9+SHAYNA >4 CM (05/18/15) HPYLORI STOOL IA (12/24/16) HYDRATE IV INFUSION ADD-ON (12/30/16) HYDRATION IV INFUSION INIT (08/19/15) LIPID PANEL (07/24/16) METABOLIC PANEL TOTAL CA (12/15/17) MR-STAPH DNA AMP PROBE (04/23/15) PROTHROMBIN TIME (12/15/17) ROUTINE VENIPUNCTURE (12/30/16) STOOL CULTR AEROBIC BACT EA (12/24/16) THER/PROPH/DIAG INJ IV PUSH (12/30/16) THER/PROPH/DIAG INJ SC/IM (09/23/16) THROMBOPLASTIN TIME PARTIAL (12/15/17) TISSUE EXAM BY PATHOLOGIST (02/04/17) TX/PRO/DX INJ NEW DRUG ADDON (06/17/14) URINALYSIS AUTO W/O SCOPE (08/14/15) URINALYSIS AUTO W/SCOPE (12/30/16) URINE CULTURE/COLONY COUNT (12/15/17) X-RAY EXAM CHEST 2 VIEWS (12/15/17) X-RAY EXAM OF ABDOMEN (12/30/16) X-RAY EXAM OF FEMUR 2/> (09/19/16) X-RAY EXAM SERIES ABDOMEN (05/30/14) (1) S/P total hip arthroplasty SNOMED Code(s): 425746856642 Code(s): Z96.649 - PRESENCE OF UNSPECIFIED ARTIFICIAL HIP JOINT Priority: High Current Visit: Yes Qualifiers: Laterality: right Qualified Code(s): Z96.641 - Presence of right artificial hip joint (2) Osteoarthritis SNOMED Code(s): 515844050 Code(s): M19.90 - UNSPECIFIED OSTEOARTHRITIS, UNSPECIFIED SITE Priority: High Current Visit: Yes Qualifiers: Osteoarthritis location: hip Osteoarthritis type: primary Laterality: right Qualified Code(s): M16.11 - Unilateral primary osteoarthritis, right hip (3) Nausea after anesthesia SNOMED Code(s): 244682391 Code(s): T88.59XA - OTHER COMPLICATIONS OF ANESTHESIA, INITIAL ENCOUNTER; R11.0 - NAUSEA Priority: Medium Current Visit: Yes Qualifiers: Encounter type: initial encounter Qualified Code(s): T88.59XA - Other complications of anesthesia, initial encounter; R11.0 - Nausea; R11.0 - Nausea Problem List Initiated/Reviewed/Updated: Yes Plan: Impression/plan Status post right total hip arthroplasty postop day #1, Dr. Rivas Pain management and DVT prophylax per primary team PT OT RT/IS Vital signs stable on room air Morning hemoglobin is 10.9, preop hemoglobin 15.1 Postoperative nausea-resolved Chronic conditions Status post gastric bypass, patient will be discharged on Xarelto Hypertension stable Hyperlipidemia Depression Eczema Esophagitis/gastritis History of anemia Other: GI prophylax Pepcid twice a day, recommend continuing Pepcid twice a day after discharge while taking Xarelto Case management for assistance with discharge planning if needed Patient doing well, okay from hospitalist standpoint for discharge today. Recommendations will be related to primary team. Patient is full CODE STATUS PCP is Nella Mercado in [place].
[2017-12-29] MEDS ORDERED: Sodium Chloride 0.9% 500 ML IV ONE (08:30)
[2017-12-29] MEDS: Ondansetron 4 MG/2 ML SDV IVPUSH PRN (08:39)
[2017-12-29] MEDS ORDERED: Venlafaxine 37.5 MG Tab PO SCH (09:00)
[2017-12-29] MEDS ORDERED: Rivaroxaban 10 MG Tab PO SCH (09:00)
[2017-12-29] MEDS ORDERED: Cholecalciferol (Vitamin D3) 1,000 Unit Tab PO SCH (09:00)
[2017-12-29] MEDS: Pantoprazole 40 MG Tab.CR PO SCH (09:34)
[2017-12-29] MEDS: Docusate Sodium 100 MG Cap PO SCH (09:34)
[2017-12-29 13:53] VITALS: BP 108/55
--- NOTE | 2017-12-29 16:24 | PCM.SURGPN ---
- General Info Date of Service: 12/29/17 POD#: 1 Functional Status: Reports: Pain Controlled, Tolerating Diet, Ambulating, Urinating, Incentive Spirometry - Review of Systems Musculoskeletal: Reports: Other (The pt feels prepared for discharge to home.) - Patient Data Vitals - Most Recent: Last Vital Signs Temp 98.6 F 12/29/17 13:40 Pulse 76 12/29/17 13:40 Resp 12 12/29/17 13:40 BP 108/55 L 12/29/17 13:40 Pulse Ox 97 12/29/17 13:40 Weight - Most Recent: 241 lb 9.6 oz I&O - Last 24 Hours: Intake & Output 12/29/17 12/29/17 12/29/17 06:59 14:59 22:59 Intake Total 900 0 Output Total 450 Balance 450 0 Lab Results Last 24 Hrs: Laboratory Results - last 24 hr 12/29/17 12/29/17 Range/Units 06:05 06:05 WBC 7.01 (3.98-10.04) K/mm3 RBC 3.82 L (3.98-5.22) M/mm3 Hgb 10.9 L (11.2-15.7) gm/L Hct 34.0 L (34.1-44.9) % MCV 89.0 (79.4-94.8) fl MCH 28.5 (25.6-32.2) pg MCHC 32.1 L (32.2-35.5) g/dl RDW Std Deviation 44.2 (36.4-46.3) fL Plt Count 229 (182-369) K/mm3 MPV 9.9 (9.4-12.3) fl Sodium 136 (136-145) mEq/L Potassium 4.2 (3.5-5.1) mEq/L Chloride 101 (98-107) mEq/L Carbon Dioxide 29 (21-32) mEq/L Anion Gap 10.2 (5-15) BUN 17 (7-18) mg/dL Creatinine 0.9 (0.55-1.02) mg/dL Est Cr Clr Drug Dosing 62.80 mL/min Estimated GFR (MDRD) > 60 (>60) mL/min BUN/Creatinine Ratio 18.9 H (14-18) Glucose 113 H (74-106) mg/dL Calcium 8.1 L (8.5-10.1) mg/dL Total Bilirubin 1.2 H (0.2-1.0) mg/dL AST 49 H (15-37) U/L ALT 49 (14-59) U/L Alkaline Phosphatase 67 (46-116) U/L Total Protein 5.7 L (6.4-8.2) g/dl Albumin 2.6 L (3.4-5.0) g/dl Globulin 3.1 gm/dL Albumin/Globulin Ratio 0.8 L (1-2) Med Orders - Current: Current Medications Bisacodyl (Dulcolax) 5 mg PO DAILY PRN PRN Reason: Constipation Cholecalciferol (Vitamin D3) 5,000 units PO DAILY [facility] Last Admin: 12/29/17 09:35 Dose: Not Given Cyclobenzaprine HCl (Flexeril) 10 mg PO TID PRN PRN Reason: Spasms Last Admin: 12/29/17 05:20 Dose: 10 mg Docusate Sodium (Colace) 100 mg PO BID [facility] Last Admin: 12/29/17 09:34 Dose: 100 mg Enalapril Maleate (Vasotec) 20 mg PO DAILY [facility] Last Admin: 12/29/17 09:40 Dose: Not Given Ketorolac Tromethamine (Toradol) 15 mg IVPUSH Q6H PRN PRN Reason: Pain Last Admin: 12/28/17 21:23 Dose: 15 mg Magnesium Hydroxide (Milk Of Magnesia) 30 ml PO BID PRN PRN Reason: Constipation Miscellaneous Information (Remove Patch) 1 ea TRDERM Q72H [facility] Morphine Sulfate (Morphine) 2 mg IVPUSH Q2H PRN PRN Reason: Breakthrough Pain Ondansetron HCl (Zofran) 4 mg IVPUSH Q6H PRN PRN Reason: Nausea/Vomiting Last Admin: 12/29/17 08:39 Dose: 4 mg Oxycodone/Acetaminophen (Percocet 325-5 Mg) 1 - 2 tab PO Q4H PRN PRN Reason: Pain Last Admin: 12/29/17 10:06 Dose: 1 tab Pantoprazole Sodium (Protonix) 40 mg PO BID [facility] Last Admin: 12/29/17 09:34 Dose: 40 mg Rivaroxaban (Xarelto) 10 mg PO DAILY [facility] Last Admin: 12/29/17 09:34 Dose: 10 mg Scopolamine (Scopolamine) 1 each TRDERM Q72H [facility] Last Admin: 12/28/17 18:48 Dose: 1 each Senna (Senna) 8.6 mg PO BID PRN PRN Reason: Constipation Sodium Chloride (Saline Flush) 10 ml FLUSH ASDIRECTED PRN PRN Reason: Keep Vein Open Venlafaxine HCl (Effexor) 37.5 mg PO DAILY [facility] Last Admin: 12/29/17 09:35 Dose: 37.5 mg Discontinued Medications Bupivacaine HCl (Marcaine 0.25%) Confirm Administered Dose 30 ml .ROUTE .STK- MED ONE Stop: 12/28/17 11:21 Last Admin: 12/28/17 13:56 Dose: 30 ml Clindamycin Phosphate (Cleocin) Confirm Administered Dose 900 mg .ROUTE .STK- MED ONE Stop: 12/28/17 11:21 Last Admin: 12/28/17 13:52 Dose: 900 mg Morphine Sulfate 8 mg/Epinephrine HCl 0.3 mg/Ketorolac Tromethamine 30 mg/ Sodium Chloride 37.9 ml 0 mg .XX ONETIME ONE Stop: 12/28/17 11:31 Last Admin: 12/28/17 13:54 Dose: 38.3 mg Diphenhydramine HCl (Benadryl) 25 mg IVPUSH Q6H PRN PRN Reason: pruritis Stop: 12/28/17 18:00 Ephedrine Sulfate (Ephedrine In Ns) Confirm Administered Dose 25 mg .ROUTE .STK- MED ONE Stop: 12/28/17 12:48 Ephedrine Sulfate (Ephedrine Sulfate) 5 mg IVPUSH ASDIRECTED PRN PRN Reason: Hypotension Stop: 12/28/17 18:00 Famotidine (Pepcid) 20 mg PO Q12H [facility] Fentanyl (Sublimaze) Confirm Administered Dose 100 mcg .ROUTE .STK-MED ONE Stop: 12/28/17 11:52 Fentanyl (Sublimaze) 50 mcg IVPUSH Q5M PRN PRN Reason: Pain Stop: 12/28/17 13:52 Hydromorphone HCl (Dilaudid) 0.5 mg IVPUSH Q15M PRN PRN Reason: severe pain Stop: 12/28/17 13:52 Lactated Ringer's (Ringers, Lactated) 1,000 mls @ 125 mls/hr IV ASDIRECTED [facility] Last Admin: 12/28/17 15:15 Dose: 125 mls/hr Clindamycin Phosphate 900 mg/ (Dextrose/Water) 106 mls @ 200 mls/hr IV Q6H [facility] Stop: 12/29/17 12:02 Last Admin: 12/29/17 11:30 Dose: 200 mls/hr Clindamycin Phosphate 900 mg/ (Sodium Chloride) 106 mls @ 100 mls/hr IV ONETIME ONE Stop: 12/28/17 12:25 Last Admin: 12/28/17 16:11 Dose: Not Given Lidocaine HCl (Xylocaine-Mpf 1%) Confirm Administered Dose 4 mls @ as directed .ROUTE .STK-MED ONE Stop: 12/28/17 11:52 Sodium Chloride (Normal Saline) 500 mls @ 999 mls/hr IV .BOLUS ONE Stop: 12/29/17 09:00 Last Admin: 12/29/17 08:40 Dose: 999 mls/hr Iodine (Iodine 2% Mild Tincture) Confirm Administered Dose 30 ml .ROUTE .STK- MED ONE Stop: 12/28/17 11:21 Last Admin: 12/28/17 13:45 Dose: 18 ml Lidocaine/Sodium Bicarbonate (Buffered Lidocaine 1% In Ns 8.4%) 0.25 ml IV ONETIME PRN PRN Reason: Prior to IV Start Stop: 12/28/17 18:00 Last Admin: 12/28/17 11:09 Dose: 0.25 ml Meperidine HCl (Demerol) 12.5 mg IVPUSH ASDIRECTED PRN PRN Reason: Shivering Stop: 12/28/17 18:00 Midazolam HCl (Versed 1 Mg/Ml) Confirm Administered Dose 2 mg .ROUTE .STK-MED ONE Stop: 12/28/17 11:52 Morphine Sulfate (Morphine) 2 mg IVPUSH Q2H PRN PRN Reason: Breakthrough Pain Morphine Sulfate (Duramorph Pf) Confirm Administered Dose 1 mg .ROUTE .STK-MED ONE Stop: 12/28/17 11:43 Naloxone HCl (Narcan) 0.1 mg IVPUSH Q5M PRN PRN Reason: Oversedation Ondansetron HCl (Zofran) Confirm Administered Dose 4 mg .ROUTE .STK-MED ONE Stop: 12/28/17 11:52 Ondansetron HCl (Zofran) 4 mg IVPUSH ONETIME PRN PRN Reason: Nausea/Vomiting Stop: 12/28/17 18:00 Phenylephrine HCl (Phenylephrine In Ns 100 Mcg/Ml) Confirm Administered Dose 1 mg .ROUTE .STK-MED ONE Stop: 12/28/17 13:00 Propofol (Diprivan 20 Ml) Confirm Administered Dose 200 mg .ROUTE .STK-MED ONE Stop: 12/28/17 11:52 Propofol (Diprivan 20 Ml) Confirm Administered Dose 200 mg .ROUTE .STK-MED ONE Stop: 12/28/17 12:57 Propofol (Diprivan 20 Ml) Confirm Administered Dose 200 mg .ROUTE .STK-MED ONE Stop: 12/28/17 13:23 Propofol (Diprivan 20 Ml) Confirm Administered Dose 200 mg .ROUTE .STK-MED ONE Stop: 12/28/17 13:44 Propofol (Diprivan 20 Ml) Confirm Administered Dose 200 mg .ROUTE .STK-MED ONE Stop: 12/28/17 14:15 Tranexamic Acid (Cyklokapron) Confirm Administered Dose 1,000 mg .ROUTE .STK- MED ONE Stop: 12/28/17 11:21 Last Admin: 12/28/17 13:58 Dose: 1,000 mg Vancomycin HCl (Vancomycin) Confirm Administered Dose 1 gm .ROUTE .STK-MED ONE Stop: 12/28/17 11:21 Last Admin: 12/28/17 13:57 Dose: 1 gm - Exam Wound/Incisions: Dressing Dry and Intact General: Alert, Cooperative, No Acute Distress Lungs: Normal Respiratory Effort Extremities: Other (Right thigh soft. NVS intact for BLE. Bj's negative RLE.) - Problem List Review Problem List Initiated/Reviewed/Updated: Yes - My Orders Last 24 Hours: Active Orders 24 hr Category Date Time Status Ready for Discharge [RC] PER UNIT ROUTINE Care 12/29/17 14:15 Active Cholecalciferol (Vitamin D3) [Vitamin D3] Med 12/29/17 09:00 Active 5,000 units PO DAILY Docusate Sodium [Colace] Med 12/28/17 21:00 Active 100 mg PO BID Enalapril [Vasotec] Med 12/29/17 09:00 Active 20 mg PO DAILY Pantoprazole [ProTONIX] Med 12/28/17 21:00 Active 40 mg PO BID Remove Patch Med 12/31/17 19:00 Active 1 ea [facility] Q[facility] Rivaroxaban [Xarelto] Med 12/29/17 09:00 Active 10 mg PO DAILY Scopolamine Med 12/28/17 19:00 Active 1 [facility] Q[facility] Venlafaxine [Effexor] Med 12/29/17 09:00 Active 37.5 mg PO DAILY Medication Orders Bisacodyl (Dulcolax) 5 mg PO DAILY PRN PRN Reason: Constipation Cholecalciferol (Vitamin D3) 5,000 units PO DAILY [facility] Last Admin: 12/29/17 09:35 Dose: Not Given Cyclobenzaprine HCl (Flexeril) 10 mg PO TID PRN PRN Reason: Spasms Last Admin: 12/29/17 05:20 Dose: 10 mg Admin: 12/28/17 21:24 Dose: 10 mg Docusate Sodium (Colace) 100 mg PO BID [facility] Last Admin: 12/29/17 09:34 Dose: 100 mg Admin: 12/28/17 21:13 Dose: 100 mg Enalapril Maleate (Vasotec) 20 mg PO DAILY [facility] Last Admin: 12/29/17 09:40 Dose: Not Given Ketorolac Tromethamine (Toradol) 15 mg IVPUSH Q6H PRN PRN Reason: Pain Last Admin: 12/28/17 21:23 Dose: 15 mg Magnesium Hydroxide (Milk Of Magnesia) 30 ml PO BID PRN PRN Reason: Constipation Miscellaneous Information (Remove Patch) 1 ea TRDER Q72H [facility] Morphine Sulfate (Morphine) 2 mg IVPUSH Q2H PRN PRN Reason: Breakthrough Pain Ondansetron HCl (Zofran) 4 mg IVPUSH Q6H PRN PRN Reason: Nausea/Vomiting Last Admin: 12/29/17 08:39 Dose: 4 mg Admin: 12/28/17 15:59 Dose: 4 mg Oxycodone/Acetaminophen (Percocet 325-5 Mg) 1 - 2 tab PO Q4H PRN PRN Reason: Pain Last Admin: 12/29/17 10:06 Dose: 1 tab Admin: 12/29/17 05:20 Dose: 2 tab Pantoprazole Sodium (Protonix) 40 mg PO BID [facility] Last Admin: 12/29/17 09:34 Dose: 40 mg Admin: 12/28/17 21:13 Dose: 40 mg Rivaroxaban (Xarelto) 10 mg PO DAILY [facility] Last Admin: 12/29/17 09:34 Dose: 10 mg Scopolamine (Scopolamine) 1 each TRDERM Q72H [facility] Last Admin: 12/28/17 18:48 Dose: 1 each Senna (Senna) 8.6 mg PO BID PRN PRN Reason: Constipation Sodium Chloride (Saline Flush) 10 ml FLUSH ASDIRECTED PRN PRN Reason: Keep Vein Open Venlafaxine HCl (Effexor) 37.5 mg PO DAILY [facility] Last Admin: 12/29/17 09:35 Dose: 37.5 mg - Assessment Assessment (Free Text/Narrative):: POD#1 - right FRANCINE - Plan Plan (Free Text/Narrative):: 1. Discharge to home today. 2. Hgb 10.9. 3. Xarelto for VTE prophylaxis. The pt's case was discussed with Dr. Rivas.
--- NOTE | 2017-12-29 16:27 | PCM.DCSUM1 ---
Discharge Summary - Hospital Course Brief History: Lela is a 57 yo female who underwent right FRANCINE with Dr. Rivas on 12-28-2017. The procedure was completed under spinal anesthesia with sedation. The pt was admitted to the Medical-Surgical Unit. She received 3 doses of Clindamycin post-operatively. She participated in P.T. and O.T. and progressed well. FRANCINE precautions were instructed. The pt's surgical wound remained clean and dry. On POD#1, Xarelto was initiated for VTE prophylaxis. SCDs and TEDs were also used. Medical management was provided by the Hospitalist service. On POD#1, the pt was deemed appropriate for discharge to home. - Discharge Data Discharge Date: 12/29/17 Discharge Disposition: Home, Self-Care 01 Condition: Good - Patient Summary/Data Consults: Consultations 12/28/17 07:05 OT Evaluation and Treatment [CONS] Routine PT Evaluation and Treatment [CONS] Routine 12/28/17 07:06 Consult to Physician [CONS] Routine - Patient Instructions Diet: Usual Diet as Tolerated Activity: Apply Ice, As Tolerated, Elevate Extremity, Full Weight Bearing Driving: Do Not Drive Showering/Bathing: May Shower Wound/Incision Care: Keep Operative Site/Wound Site Clean and Dry, Do NOT Change Dressing Notify Provider of: Fever, Increased Pain, Swelling and Redness, Drainage, Nausea and/or Vomiting Other/Special Instructions: Please get up and moving around every hour while awake. This helps to prevent blood clots. Please use your walker and have help as needed. Use the blood thinner medication as directed. Do the exercises you were taught in the Hospital. Schedule for P.T. Follow the total hip precautions. Use the pain medication as needed. The medication may cause drowsiness and constipation. Contact your primary care provider for instructions if you are constipated. You may use a stool softener like docusate sodium or Colace 100mg twice daily and/or a laxative like Miralax daily for constipation. Use the ice machine often. Elevate the limb to decrease swelling. Keep the Mepilex dressing in place until follow-up at the Clinic. Notify the Clinic if the dressing is saturated. Wear the ANDREW hose during the day and you may remove these at night. Eat a diet high in protein as this well help with healing. Schedule an appointment with your primary care provider for 'routine post-op care'. Call the Clinic with questions or concerns - [phone]. - Discharge Plan Prescriptions/Med Rec: Acetaminophen/oxyCODONE [Percocet 325-5 MG] 1 - 2 tab PO Q4H PRN #60 tablet PRN Reason: Pain Cyclobenzaprine [Flexeril] 10 mg PO TID PRN #40 tablet PRN Reason: Spasms Rivaroxaban [Xarelto] 10 mg PO DAILY #40 tablet Home Medications: Home Meds Enalapril Maleate 20 mg PO DAILY 02/03/17 [History] Cholecalciferol (Vitamin D3) [Vitamin D3] 5,000 unit PO DAILY 12/25/17 [History] Omeprazole 20 mg PO DAILY 12/25/17 [History] Venlafaxine [Effexor] 37.5 mg PO DAILY 12/28/17 [History] Acetaminophen/oxyCODONE [Percocet 325-5 MG] 1 - 2 tab PO Q4H PRN #60 tablet 05/10 [Rx] Cyclobenzaprine [Flexeril] 10 mg PO TID PRN #40 tablet 12/29/17 [Rx] Docusate Sodium [Colace] 100 mg PO BID cap 12/29/17 [Rx] Rivaroxaban [Xarelto] 10 mg PO DAILY #40 tablet 12/29/17 [Rx] Patient Handouts: Total Hip Replacement, Care After, Total Hip Replacement, [id number] Referrals: Nella Mercado COAL CUTTING MACHINE OPERATOR [Primary Care Provider] - 01/04/18 10:00 am Alise Ayala PA-C [Physician Slot Shift Supervisor] - (1. Follow-up with Alise Ayala PA-C on Friday, January 05, 2018 at 10:30 am. 2. Follow-up with Alise Ayala PA-C on Friday, January 12, 2018 at 10:00 am.) - Patient Data Vitals - Most Recent: Last Vital Signs Temp 98.6 F 12/29/17 13:40 Pulse 76 12/29/17 13:40 Resp 12 12/29/17 13:40 BP 108/55 L 12/29/17 13:40 Pulse Ox 97 12/29/17 13:40 Weight - Most Recent: 241 lb 9.6 oz I&O - Last 24 hours: Intake & Output 02/06/18 02/06/18 02/06/18 06:59 14:59 22:59 Intake Total 900 0 Output Total 450 Balance 450 0 Lab Results - Last 24 hrs: Laboratory Results - last 24 hr 12/29/17 12/29/17 Range/Units 06:05 06:05 WBC 7.01 (3.98-10.04) K/mm3 RBC 3.82 L (3.98-5.22) M/mm3 Hgb 10.9 L (11.2-15.7) gm/L Hct 34.0 L (34.1-44.9) % MCV 89.0 (79.4-94.8) fl MCH 28.5 (25.6-32.2) pg MCHC 32.1 L (32.2-35.5) g/dl RDW Std Deviation 44.2 (36.4-46.3) fL Plt Count 229 (182-369) K/mm3 MPV 9.9 (9.4-12.3) fl Sodium 136 (136-145) mEq/L Potassium 4.2 (3.5-5.1) mEq/L Chloride 101 (98-107) mEq/L Carbon Dioxide 29 (21-32) mEq/L Anion Gap 10.2 (5-15) BUN 17 (7-18) mg/dL Creatinine 0.9 (0.55-1.02) mg/dL Est Cr Clr Drug Dosing 62.80 mL/min Estimated GFR (MDRD) > 60 (>60) mL/min BUN/Creatinine Ratio 18.9 H (14-18) Glucose 113 H (74-106) mg/dL Calcium 8.1 L (8.5-10.1) mg/dL Total Bilirubin 1.2 H (0.2-1.0) mg/dL AST 49 H (15-37) U/L ALT 49 (14-59) U/L Alkaline Phosphatase 67 (46-116) U/L Total Protein 5.7 L (6.4-8.2) g/dl Albumin 2.6 L (3.4-5.0) g/dl Globulin 3.1 gm/dL Albumin/Globulin Ratio 0.8 L (1-2) Med Orders - Current: Current Medications Bisacodyl (Dulcolax) 5 mg PO DAILY PRN PRN Reason: Constipation Cholecalciferol (Vitamin D3) 5,000 units PO DAILY [facility] Last Admin: 12/29/17 09:35 Dose: Not Given Cyclobenzaprine HCl (Flexeril) 10 mg PO TID PRN PRN Reason: Spasms Last Admin: 12/29/17 05:20 Dose: 10 mg Docusate Sodium (Colace) 100 mg PO BID [facility] Last Admin: 12/29/17 09:34 Dose: 100 mg Enalapril Maleate (Vasotec) 20 mg PO DAILY [facility] Last Admin: 12/29/17 09:40 Dose: Not Given Ketorolac Tromethamine (Toradol) 15 mg IVPUSH Q6H PRN PRN Reason: Pain Last Admin: 12/28/17 21:23 Dose: 15 mg Magnesium Hydroxide (Milk Of Magnesia) 30 ml PO BID PRN PRN Reason: Constipation Miscellaneous Information (Remove Patch) 1 ea TRDERM Q72H [facility] Morphine Sulfate (Morphine) 2 mg IVPUSH Q2H PRN PRN Reason: Breakthrough Pain Ondansetron HCl (Zofran) 4 mg IVPUSH Q6H PRN PRN Reason: Nausea/Vomiting Last Admin: 12/29/17 08:39 Dose: 4 mg Oxycodone/Acetaminophen (Percocet 325-5 Mg) 1 - 2 tab PO Q4H PRN PRN Reason: Pain Last Admin: 12/29/17 10:06 Dose: 1 tab Pantoprazole Sodium (Protonix) 40 mg PO BID [facility] Last Admin: 12/29/17 09:34 Dose: 40 mg Rivaroxaban (Xarelto) 10 mg PO DAILY [facility] Last Admin: 12/29/17 09:34 Dose: 10 mg Scopolamine (Scopolamine) 1 each TRDERM Q72H [facility] Last Admin: 12/28/17 18:48 Dose: 1 each Senna (Senna) 8.6 mg PO BID PRN PRN Reason: Constipation Sodium Chloride (Saline Flush) 10 ml FLUSH ASDIRECTED PRN PRN Reason: Keep Vein Open Venlafaxine HCl (Effexor) 37.5 mg PO DAILY [facility] Last Admin: 12/29/17 09:35 Dose: 37.5 mg Discontinued Medications Bupivacaine HCl (Marcaine 0.25%) Confirm Administered Dose 30 ml .ROUTE .STK- MED ONE Stop: 12/28/17 11:21 Last Admin: 12/28/17 13:56 Dose: 30 ml Clindamycin Phosphate (Cleocin) Confirm Administered Dose 900 mg .ROUTE .STK- MED ONE Stop: 12/28/17 11:21 Last Admin: 12/28/17 13:52 Dose: 900 mg Morphine Sulfate 8 mg/Epinephrine HCl 0.3 mg/Ketorolac Tromethamine 30 mg/ Sodium Chloride 37.9 ml 0 mg .XX ONETIME ONE Stop: 12/28/17 11:31 Last Admin: 12/28/17 13:54 Dose: 38.3 mg Diphenhydramine HCl (Benadryl) 25 mg IVPUSH Q6H PRN PRN Reason: pruritis Stop: 12/28/17 18:00 Ephedrine Sulfate (Ephedrine In Ns) Confirm Administered Dose 25 mg .ROUTE .STK- MED ONE Stop: 12/28/17 12:48 Ephedrine Sulfate (Ephedrine Sulfate) 5 mg IVPUSH ASDIRECTED PRN PRN Reason: Hypotension Stop: 12/28/17 18:00 Famotidine (Pepcid) 20 mg PO Q12H [facility] Fentanyl (Sublimaze) Confirm Administered Dose 100 mcg .ROUTE .STK-MED ONE Stop: 12/28/17 11:52 Fentanyl (Sublimaze) 50 mcg IVPUSH Q5M PRN PRN Reason: Pain Stop: 12/28/17 13:52 Hydromorphone HCl (Dilaudid) 0.5 mg IVPUSH Q15M PRN PRN Reason: severe pain Stop: 12/28/17 13:52 Lactated Ringer's (Ringers, Lactated) 1,000 mls @ 125 mls/hr IV ASDIRECTED [facility] Last Admin: 12/28/17 15:15 Dose: 125 mls/hr Clindamycin Phosphate 900 mg/ (Dextrose/Water) 106 mls @ 200 mls/hr IV Q6H [facility] Stop: 12/29/17 12:02 Last Admin: 12/29/17 11:30 Dose: 200 mls/hr Clindamycin Phosphate 900 mg/ (Sodium Chloride) 106 mls @ 100 mls/hr IV ONETIME ONE Stop: 12/28/17 12:25 Last Admin: 12/28/17 16:11 Dose: Not Given Lidocaine HCl (Xylocaine-Mpf 1%) Confirm Administered Dose 4 mls @ as directed .ROUTE .STK-MED ONE Stop: 12/28/17 11:52 Sodium Chloride (Normal Saline) 500 mls @ 999 mls/hr IV .BOLUS ONE Stop: 12/29/17 09:00 Last Admin: 12/29/17 08:40 Dose: 999 mls/hr Iodine (Iodine 2% Mild Tincture) Confirm Administered Dose 30 ml .ROUTE .STK- MED ONE Stop: 12/28/17 11:21 Last Admin: 12/28/17 13:45 Dose: 18 ml Lidocaine/Sodium Bicarbonate (Buffered Lidocaine 1% In Ns 8.4%) 0.25 ml IV ONETIME PRN PRN Reason: Prior to IV Start Stop: 12/28/17 18:00 Last Admin: 12/28/17 11:09 Dose: 0.25 ml Meperidine HCl (Demerol) 12.5 mg IVPUSH ASDIRECTED PRN PRN Reason: Shivering Stop: 12/28/17 18:00 Midazolam HCl (Versed 1 Mg/Ml) Confirm Administered Dose 2 mg .ROUTE .STK-MED ONE Stop: 12/28/17 11:52 Morphine Sulfate (Morphine) 2 mg IVPUSH Q2H PRN PRN Reason: Breakthrough Pain Morphine Sulfate (Duramorph Pf) Confirm Administered Dose 1 mg .ROUTE .STK-MED ONE Stop: 12/28/17 11:43 Naloxone HCl (Narcan) 0.1 mg IVPUSH Q5M PRN PRN Reason: Oversedation Ondansetron HCl (Zofran) Confirm Administered Dose 4 mg .ROUTE .STK-MED ONE Stop: 12/28/17 11:52 Ondansetron HCl (Zofran) 4 mg IVPUSH ONETIME PRN PRN Reason: Nausea/Vomiting Stop: 12/28/17 18:00 Phenylephrine HCl (Phenylephrine In Ns 100 Mcg/Ml) Confirm Administered Dose 1 mg .ROUTE .STK-MED ONE Stop: 12/28/17 13:00 Propofol (Diprivan 20 Ml) Confirm Administered Dose 200 mg .ROUTE .STK-MED ONE Stop: 12/28/17 11:52 Propofol (Diprivan 20 Ml) Confirm Administered Dose 200 mg .ROUTE .STK-MED ONE Stop: 12/28/17 12:57 Propofol (Diprivan 20 Ml) Confirm Administered Dose 200 mg .ROUTE .STK-MED ONE Stop: 12/28/17 13:23 Propofol (Diprivan 20 Ml) Confirm Administered Dose 200 mg .ROUTE .STK-MED ONE Stop: 12/28/17 13:44 Propofol (Diprivan 20 Ml) Confirm Administered Dose 200 mg .ROUTE .STK-MED ONE Stop: 12/28/17 14:15 Tranexamic Acid (Cyklokapron) Confirm Administered Dose 1,000 mg .ROUTE .STK- MED ONE Stop: 12/28/17 11:21 Last Admin: 12/28/17 13:58 Dose: 1,000 mg Vancomycin HCl (Vancomycin) Confirm Administered Dose 1 gm .ROUTE .STK-MED ONE Stop: 12/28/17 11:21 Last Admin: 12/28/17 13:57 Dose: 1 gm *Q Meaningful Use (DIS) - VTE *Q VTE Criteria *Q: - Stroke *Q Stroke Criteria *Q: - AMI *Q AMI Criteria *Q:
--- NOTE | 2018-01-08 13:20 | PCM.OPNOTE ---
- General Post-Op/Procedure Note Date of Surgery/Procedure: 12/28/17 Operative Procedure(s): right total hip arthroplasty Pre Op Diagnosis: right hip osteoarthrosis Post-Op Diagnosis: Same Anesthesia Technique: Local, MAC, Spinal Primary Surgeon: Bal Rivas Anesthesia Provider: Reyna Ramírez Nuclear Cardiology Technologist: Alise Ayala Nuclear Cardiology Technologist: Ema Cheng EBYahaira in mLs: 550 Complications: None Condition: Good
--- NOTE | 2018-01-08 14:12 | OR ---
DATE OF OPERATION: 12/28/2017 SURGEON: Bal Rivas MD OPERATION PERFORMED: Right total hip arthroplasty. PREOPERATIVE DIAGNOSIS: Right hip osteoarthrosis. POSTOPERATIVE DIAGNOSIS: Right hip osteoarthrosis. ANESTHESIA: Local MAC with spinal. ANESTHESIA PROVIDER: Reyna Ramírez CRNA. ASSISTANTS: Alise Ayala PA-C, and Ema Cheng LPN. ESTIMATED BLOOD LOSS: 550 mL. COMPLICATIONS: None. CONDITION: Stable. DESCRIPTION OF PROCEDURE: The patient was identified in the preoperative holding area. Proper site was marked and identified by the surgeon. The patient was taken back to the operating theater, where after adequate anesthesia, the patient was placed in the left lateral decubitus position. Axillary roll was placed. All bony prominences were well padded. Pegs were then placed and were well padded. The patient's gluteal fold was parallel to the floor. The right hip was then sterilely prepped and draped in the usual sterile fashion. OR time-out was performed. The patient received 2 g IV Ancef. At this time, incision was made centered over the greater trochanter. This was taken down to the IT band and gluteal fascia, which was incised along the incisional length. Charnley retractor was then placed. The short external rotators were identified and takedown of the short external rotators was done from the level of the piriformis all the way to the lesser trochanter. At this time, the hip was dislocated. Neck cut guide was then placed. The neck cut was completed. At this time, anterior and posterior acetabular retractors were placed and the remainder of the labrum was removed along with any pulvinar. Starting with a 44 reamer, I was able to ream up to a 54, which was found to be stable. The trial implant was found to be stable. At this time, a 54 mm Tritanium acetabular cup was opened and impacted into place. A 36 mm +10 degree elevated liner was then impacted into place. At this time, attention was turned to the femur. The femoral elevator was placed. A box chisel was used out laterally. Starter awl was placed down the canal. Starting with the 0 broach, I was able to broach up to a size 6, which was found to be rotationally and vertically stable. A 127- degree neck angle along with a 36, +0 head was then trialed. It was found to be short in leg lengths. At this time, a 36, +8 was trialed and was found to have adequate caodaism of leg lengths and was stable throughout range of motion. At this time, a bone hook was used for dislocation of the trial implants. A size 6 [place] Accolade II stem was then impacted into place along with a 36 mm +8 ceramic head. At this time, the hip was then relocated. One liter dilute Betadine solution was irrigated through the hip along with 3 L of pulse lavage irrigation with Ancef. Periarticular injection was then completed. Topical tranexamic acid as well as vancomycin powder were then placed. A #5 Ethibond was used for closure of the short external rotators and capsule. A #2 barbed suture was used for closure of the IT band and gluteal fascia. A 2-0 Vicryl was used subcutaneously and Prineo was used for the skin. The patient tolerated the procedure well, sent to PACU in stable condition. MMCHRISTIAN /[id number]
== END 2017-12-29 15:45 | disposition home or self-care (01) | DRG 301 ==
LOC: UNDOADMIN 10:32 → JD.MS 10:32
PROVIDERS: ADMIT Orthopaedic Surgery; ATTEND Orthopaedic Surgery
PROC: 0SR9019 Replacement of Right Hip Joint with Metal Synthetic Substitute, Cemented, Open Approach (ICD-10-PCS; principal; 2017-12-28)
DX: M16.11 Unilateral primary osteoarthritis, right hip (principal); I10 Essential (primary) hypertension; F41.9 Anxiety disorder, unspecified; F32.9 Major depressive disorder, single episode, unspecified; E78.5 Hyperlipidemia, unspecified; H54.7 Unspecified visual loss; Z87.891 Personal history of nicotine dependence; Z88.1 Allergy status to other antibiotic agents; Z79.899 Other long term (current) drug therapy; K29.70 Gastritis, unspecified, without bleeding; D64.9 Anemia, unspecified; L30.9 Dermatitis, unspecified; T88.59XA Other complications of anesthesia, initial encounter
CPT/HCPCS: 01214; 36415; 73501-26-RT; 73501-RT; 80053; 85027; 86850; 86900; 86901; 87641; 94762; 97110-GP; 97116-GP; 97161-GP; 97165-GO; 97535-GO; A9270-GY; C1776; J0171; J1885; J2250; J2270; J2274; J2405; J2704; J3010; J3370; J3490; J7040; J7050; J7060; J7120

== ENCOUNTER 2018-07-19 07:09 | Inpatient (IN) | payer BC ==
[~2018-07-19 07:09] MED LIST changes: +Acetaminophen 325 MG Tab PO SCH; -Bisacodyl 5 MG Tab PO PRN; +Ketamine 500 mg/10 ML MDV ONE; -Ketorolac 15 MG/ML SDV IVPUSH PRN; +Lidocaine 1% 4 ML ONE; +Lidocaine 1%/Sod Bicarbonate in NS 8.4% 1 ML Syringe IDERM PRN; -Lidocaine 1%/Sod Bicarbonate in NS 8.4% 1 ML Syringe IV PRN; -Magnesium Hydroxide 400 MG/5 ML Susp 30 ML Cup PO PRN; +Midazolam 1 MG/ML 2 ML SDV ONE; -Morphine 2 MG/ML Syringe IVPUSH PRN; +Morphine 8 MG, EPINEPHrine 0.3 MG, Cefuroxime 750 MG, Ketorolac 30 MG, Sodium Chloride ... ONE; -Naloxone 0.4 MG/ML SDV IVPUSH PRN; +Pregabalin 25 MG Cap PO SCH; +Propofol 200 MG/20 ML SDV ONE; -Sennosides 8.6 MG Tab PO PRN; +ceFAZolin 1 GM Vial ONE; +fentaNYL 100 MCG/2 ML SDV ONE; +oxyCODONE ER 10 MG TAB.ER PO SCH
[2018-07-19] MEDS ORDERED: Morphine PF 10 MG/10 ML SDV ONE (07:13)
[2018-07-19] MEDS ORDERED: cloNIDine 1,000 MCG/10 ML SDV ONE (07:13)
[2018-07-19] MEDS: Lactated Ringers 1,000 ML IV SCH ×2 (07:50→17:32)
[2018-07-19] MEDS ORDERED: Clindamycin Phosphate 900 MG in Dextrose 5% in Water 100 ML IV ONE ×2 (08:00)
[2018-07-19] MEDS ORDERED: Scopolamine 1.5 MG Transdermal Patch TRDERM ONE (08:00)
[2018-07-19] MEDS: Clindamycin Phosphate 900 MG/6 ML AdvVial ONE ×2 (08:01→09:37)
[2018-07-19] MEDS: Bupivacaine 0.25% 30 ML SDV ONE ×2 (08:01→09:42)
[2018-07-19] MEDS: Iodine/Sodium Iodide 2% Tincture 30 ML Bottle ONE ×2 (08:02→09:35)
[2018-07-19] MEDS: EPINEPHRINE ONE ×12 (08:02→11:45)
[2018-07-19] MEDS: MORPHINE ONE ×12 (08:02→11:45)
[2018-07-19] MEDS: SODIUM CHLORIDE 0.9% ONE ×12 (08:02→11:45)
[2018-07-19] MEDS: KETOROLAC ONE ×12 (08:02→11:45)
[2018-07-19] MEDS: Vancomycin 1 GM SDV ONE ×2 (08:04→09:43)
[2018-07-19] MEDS ORDERED: Dexamethasone 4 MG/ML SDV ONE ×2 (08:27→09:38)
[2018-07-19] MEDS ORDERED: Ondansetron 4 MG/2 ML SDV ONE (08:27)
[2018-07-19] MEDS ORDERED: ePHEDrine/Normal Saline 25 MG/5 ML Syringe ONE (09:14)
[2018-07-19] MEDS ORDERED: Bupivacaine 0.75% 30 ML SDV ONE (09:14)
[2018-07-19] MEDS ORDERED: Phenylephrine/Normal Saline 100 MCG/ML 10 ML Syringe ONE ×2 (09:14→10:08)
--- NOTE | 2018-07-19 09:22 | PCM.PREANE ---
Preanesthetic Assessment - Anesthesia/Transfusion/Family Hx Anesthesia History: Prior Anesthesia Without Reaction Family History of Anesthesia Reaction: No Transfusion History: No Prior Transfusion(s) Type of Transfusion Reactions: Reports: Unknown - Review of Systems General: Fatigue Pulmonary: No Symptoms Cardiovascular: No Symptoms Gastrointestinal: Other (GERD controlled with medication. ) Neurological: Other (Sciatica, left side. Intermittent. ) Other: Reports: Depression - Physical Assessment NPO Status Date: 07/18/18 NPO Status Time: 19:00 O2 Sat by Pulse Oximetry: 95 Respiratory Rate: 18 Vital Signs: Last Vital Signs Temp 36.6 C 07/19/18 07:39 Pulse 78 07/19/18 07:39 Resp 18 07/19/18 07:39 BP 123/77 07/19/18 07:39 Pulse Ox 95 07/19/18 07:39 Height: 1.65 m Weight: 111.4 kg ASA Class: 2 Mental Status: Alert & Oriented x3 Airway Class: Mallampati = 2 Dentition: Reports: Normal Dentition Thyro-Mental Finger Breadths: 3 Mouth Opening Finger Breadths: 3 ROM/Head Extension: Full Lungs: Clear to Auscultation, Normal Respiratory Effort Cardiovascular: Regular Rate, Regular Rhythm - Lab Values: Laboratory Last Values MRSA (PCR) Negative 07/06/18 14:12 Blood Type A POSITIVE 07/19/18 07:55 Gel Antibody Screen Negative 07/19/18 07:55 - Allergies Allergies/Adverse Reactions: Allergies Allergy/AdvReac Type Severity Reaction Status Date / Time amoxicillin Allergy Hives Verified 07/19/18 08:13 amoxicillin trihydrate Allergy Hives Verified 07/19/18 08:13 [From Augmentin] potassium clavulanate Allergy Hives Verified 07/19/18 08:13 [From Augmentin] - Acknowledgements Anesthesia Type Planned: Spinal Pt an Appropriate Candidate for the Planned Anesthesia: Yes Alternatives and Risks of Anesthesia Discussed w Pt/Guardian: Yes Pt/Guardian Understands and Agrees with Anesthesia Plan: Yes PreAnesthesia Questionnaire HEENT History: Reports: Impaired Vision, Otitis Media, Sinusitis, Other (See Below) Other HEENT History: pharyngitis, wears glasses Cardiovascular History: Reports: High Cholesterol, Hypertension Respiratory History: Reports: Bronchitis, Recurrent, Other (See Below) Other Respiratory History: cough Gastrointestinal History: Reports: Gastritis, Other (See Below) Other Gastrointestinal History: esophagitis, abdominal pain Genitourinary History: Reports: Other (See Below) Other Genitourinary History: urinary urgency 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 (See Below) Other OB/BYN History: hot flashes Musculoskeletal History: Reports: Other (See Below) Other Musculoskeletal History: back pain, R knee pain Neurological History: Reports: None Psychiatric History: Reports: Anxiety, Depression Endocrine/Metabolic History: Reports: None Hematologic History: Reports: Anemia Immunologic History: Reports: None Oncologic (Cancer) History: Reports: None Dermatologic History: Reports: Other (See Below) Other Dermatologic History: eczema, viral warts, plantar wart - Infectious Disease History Infectious Disease History: Reports: Chicken Pox - Past Surgical History Head Surgeries/Procedures: Reports: None HEENT Surgical History: Reports: Tonsillectomy Cardiovascular Surgical History: Reports: None Respiratory Surgical History: Reports: None GI Surgical History: Reports: Appendectomy, Bariatric Procedure, Cholecystectomy , Other (See Below) Other GI Surgeries/Procedures: Lapband Female Surgical History: Reports: Hysterectomy, Oophorectomy, Tubal Ligation Male Surgical History: Reports: None Endocrine Surgical History: Reports: None Neurological Surgical History: Reports: None Musculoskeletal Surgical History: Reports: Arthroscopic Knee, Other (See Below) Other Musculoskeletal Surgeries/Procedures:: right elbow surgery-pinches nerve, knee surgery Oncologic Surgical History: Reports: None - SUBSTANCE USE Smoking Status *Q: Former Smoker Second Hand Smoke Exposure: No Recreational Drug Use History: No - HOME MEDS Home Medications: Home Meds Enalapril Maleate 20 mg PO DAILY 02/03/17 [History] Cholecalciferol (Vitamin D3) [Vitamin D3] 5,000 unit PO DAILY 12/25/17 [History] Omeprazole 20 mg PO BID 12/25/17 [History] Venlafaxine [Effexor] 37.5 mg PO DAILY 12/28/17 [History] - CURRENT (IN HOUSE) MEDS Current Meds: Current Medications Acetaminophen (Tylenol) 975 mg PO ONETIME [facility] Stop: 07/19/18 12:00 Last Admin: 07/19/18 08:00 Dose: 975 mg Bisacodyl (Dulcolax) 5 mg PO DAILY PRN PRN Reason: Constipation Cyclobenzaprine HCl (Flexeril) 10 mg PO TID PRN PRN Reason: Spasms Docusate Sodium (Colace) 100 mg PO BID [facility] Famotidine (Pepcid) 20 mg PO Q12H [facility] Lactated Ringer's (Ringers, Lactated) 1,000 mls @ 125 mls/hr IV ASDIRECTED [facility] Stop: 07/19/18 23:00 Last Admin: 07/19/18 07:50 Dose: 125 mls/hr Clindamycin Phosphate 900 mg/ (Dextrose/Water) 106 mls @ 100 mls/hr IV Q8H [facility] Ketorolac Tromethamine (Toradol) 15 mg IVPUSH Q6H PRN PRN Reason: Pain Lidocaine/Sodium Bicarbonate (Buffered Lidocaine 1% In Ns 8.4%) 0.25 ml IDERM ONETIME PRN PRN Reason: Prior to IV Start Stop: 07/19/18 18:00 Magnesium Hydroxide (Milk Of Magnesia) 30 ml PO BID PRN PRN Reason: Constipation Morphine Sulfate (Morphine) 2 mg IVPUSH Q2H PRN PRN Reason: Breakthrough Pain Naloxone HCl (Narcan) 0.1 mg IVPUSH Q5M PRN PRN Reason: Oversedation Ondansetron HCl (Zofran) 4 mg IVPUSH Q6H PRN PRN Reason: Nausea/Vomiting Oxycodone HCl (Oxycontin) 10 mg PO ASDIRECTED [facility] Stop: 07/19/18 12:00 Last Admin: 07/19/18 08:01 Dose: 10 mg Oxycodone/Acetaminophen (Percocet 325-5 Mg) 1 - 2 tab PO Q4H PRN PRN Reason: Pain Pregabalin (Lyrica) 50 mg PO ONETIME [facility] Stop: 07/19/18 12:00 Last Admin: 07/19/18 08:00 Dose: 50 mg Rivaroxaban (Xarelto) 10 mg PO DAILY [facility] Senna (Senna) 8.6 mg PO BID PRN PRN Reason: Constipation Sodium Chloride (Saline Flush) 10 ml FLUSH ASDIRECTED PRN PRN Reason: Keep Vein Open Stop: 07/19/18 18:00 Discontinued Medications Bupivacaine HCl (Marcaine 0.25%) Confirm Administered Dose 30 ml .ROUTE .STK- MED ONE Stop: 07/19/18 07:53 Last Admin: 07/19/18 08:01 Dose: 30 ml Bupivacaine HCl (Sensorcaine-Mpf 0.75%) Confirm Administered Dose 30 ml .ROUTE .STK-MED ONE Stop: 07/19/18 09:15 Cefazolin Sodium (Ancef) Confirm Administered Dose 2 gm .ROUTE .ST-MED ONE Stop: 07/19/18 07:10 Clindamycin Phosphate (Cleocin) Confirm Administered Dose 900 mg .ROUTE .STK- MED ONE Stop: 07/19/18 07:53 Last Admin: 07/19/18 08:01 Dose: 900 mg Clonidine HCl (Duraclon) Confirm Administered Dose 1,000 mcg .ROUTE .STK-MED ONE Stop: 07/19/18 07:14 Morphine Sulfate 8 mg/Epinephrine HCl 0.3 mg/Cefuroxime Sodium 750 mg/Ketorolac Tromethamine 30 mg/Sodium Chloride 27.9 ml 0 mg .XX ONETIME ONE Stop: 07/19/18 06:31 Morphine Sulfate 8 mg/Epinephrine HCl 0.3 mg/Ketorolac Tromethamine 30 mg/ Sodium Chloride 37.9 ml 0 mg .XX ONETIME ONE Stop: 07/19/18 08:31 Last Admin: 07/19/18 08:02 Dose: 38.3 mg Dexamethasone (Dexamethasone) Confirm Administered Dose 4 mg .ROUTE .ST-MED ONE Stop: 07/19/18 08:28 Ephedrine Sulfate (Ephedrine In Ns) Confirm Administered Dose 25 mg .ROUTE .ST- MED ONE Stop: 07/19/18 09:15 Fentanyl (Sublimaze) Confirm Administered Dose 100 mcg .ROUTE .ST-MED ONE Stop: 07/19/18 07:09 Lidocaine HCl (Xylocaine-Mpf 1%) Confirm Administered Dose 4 mls @ as directed .ROUTE .ST-MED ONE Stop: 07/19/18 07:10 Clindamycin Phosphate 900 mg/ (Dextrose/Water) 106 mls @ 212 mls/hr IV ONETIME ONE Stop: 07/19/18 08:29 Last Admin: 07/19/18 08:02 Dose: 212 mls/hr Lidocaine HCl (Xylocaine-Mpf 1%) Confirm Administered Dose 5 mls @ as directed .ROUTE .STK-MED ONE Stop: 07/19/18 09:15 Iodine (Iodine 2% Mild Tincture) Confirm Administered Dose 30 ml .ROUTE .ST- MED ONE Stop: 07/19/18 07:53 Last Admin: 07/19/18 08:02 Dose: 18 ml Ketamine HCl (Ketalar) Confirm Administered Dose 500 mg .ROUTE .STK-MED ONE Stop: 07/19/18 07:10 Midazolam HCl (Versed 1 Mg/Ml) Confirm Administered Dose 2 mg .ROUTE .STK-MED ONE Stop: 07/19/18 07:10 Morphine Sulfate (Duramorph Pf) Confirm Administered Dose 10 mg .ROUTE .STK-MED ONE Stop: 07/19/18 07:14 Ondansetron HCl (Zofran) Confirm Administered Dose 4 mg .ROUTE .STK-MED ONE Stop: 07/19/18 08:28 Phenylephrine HCl (Phenylephrine In Ns 100 Mcg/Ml) Confirm Administered Dose 1 mg .ROUTE .STK-MED ONE Stop: 07/19/18 09:15 Propofol (Diprivan 20 Ml) Confirm Administered Dose 600 mg .ROUTE .STK-MED ONE Stop: 07/19/18 07:09 Scopolamine (Transderm-Scop) 1.5 mg TRDERM ONETIME ONE Stop: 07/19/18 08:01 Last Admin: 07/19/18 08:00 Dose: 1.5 mg Tranexamic Acid (Cyklokapron) Confirm Administered Dose 1,000 mg .ROUTE .STK- MED ONE Stop: 07/19/18 07:52 Last Admin: 07/19/18 08:03 Dose: 1,000 mg Vancomycin HCl (Vancomycin) Confirm Administered Dose 1 gm .ROUTE .STK-MED ONE Stop: 07/19/18 07:53 Last Admin: 07/19/18 08:04 Dose: 1 gm
[2018-07-19] MEDS ORDERED: Haloperidol Lactate 5 MG/ML SDV IVPUSH PRN (09:24)
[2018-07-19] MEDS ORDERED: ePHEDrine 50 MG/ML SDV IVPUSH PRN (09:24)
[2018-07-19] MEDS ORDERED: diphenhydrAMINE 50 MG/ML SDV IVPUSH PRN (09:24)
[2018-07-19] MEDS ORDERED: Hetastarch in NS 500 ML ONE (09:28)
[2018-07-19] MEDS ORDERED: Midazolam 1 MG/ML 2 ML SDV ONE (09:32)
[2018-07-19] MEDS ORDERED: Ketorolac 30 MG/ML SDV ONE (09:38)
[2018-07-19] MEDS ORDERED: Lactated Ringers 1,000 ML ONE ×2 (09:43→09:44)
--- NOTE | 2018-07-19 10:29 | PCM.POSTAN ---
POST ANESTHESIA ASSESSMENT - MENTAL STATUS Mental Status: Alert, Oriented - VITAL SIGNS Pulse Rate: 86 SaO2: 86 Resp Rate: 15 Blood Pressure: 98/47 Temperature: 36.3 C - RESPIRATORY Respiratory Status: Respiratory Rate WNL, Airway Patent, O2 Saturation Stable, Supplemental Oxygen - CARDIOVASCULAR CV Status: Pulse Rate WNL, Blood Pressure Stable - GASTROINTESTINAL GI Status: No Symptoms - PAIN Pain Score: 0 - POST OP HYDRATION Hydration Status: Adequate & Stable
[2018-07-19] MEDS ORDERED: Magnesium Hydroxide 400 MG/5 ML Susp 30 ML Cup PO PRN (11:00)
[2018-07-19] MEDS ORDERED: Naloxone 0.4 MG/ML SDV IVPUSH PRN (11:00)
[2018-07-19] MEDS ORDERED: Bisacodyl 5 MG Tab PO PRN (11:00)
[2018-07-19] MEDS ORDERED: Morphine 2 MG/ML Syringe IVPUSH PRN (11:00)
[2018-07-19] MEDS ORDERED: Cyclobenzaprine 10 MG Tab PO PRN (11:00)
[2018-07-19] MEDS ORDERED: Ketorolac 15 MG/ML SDV IVPUSH PRN (11:00)
[2018-07-19] MEDS ORDERED: Ondansetron 4 MG/2 ML SDV IVPUSH PRN (11:00)
[2018-07-19] MEDS ORDERED: Sennosides 8.6 MG Tab PO PRN (11:00)
--- NOTE | 2018-07-19 13:19 | CR ---
Pelvis and left hip: AP view of the pelvis was obtained as well as lateral view of the left hip. Comparison: Prior pelvis and right hip exam of 12/28/17. Bilateral hip prosthesis are noted. Left hip has been placed in the interim from prior study. Components are aligned within both hips. Underlying bony structures are intact within both hips and pelvis. Impression: 1. Bilateral hip prosthesis. 2. No acute abnormality is seen. Diagnostic code #2
[2018-07-19] MEDS: Clindamycin Phosphate 900 MG in Dextrose 5% in Water 100 ML IV SCH ×4 (16:18→23:41)
--- NOTE | 2018-07-19 17:39 | PCM.SN ---
- Free Text/Narrative Note: In to see Lela. Overall she is doing well s/p L FRANCINE day 0. She currently states her pain is controlled and denies F/C, Headache, V/D, Chest pain, SOB, Cough. She is having some mild nausea, antiemetic given by nursing. Working with Physical Therapy. Urinating. Using Incentive Spirometry. Clark D/C'd. Currently on 2L NC, not usually on at home, was 81-90% on RA. DVT prophylaxis. Physical Exam unremarkable- PERRLA, Lungs Clear, Normal Heart sounds, Neurovascularly intact in extremities with 3+ pulses. No other concerns from nursing.
[2018-07-19] MEDS: Acetaminophen/oxyCODONE 325-5 MG Tab PO PRN ×2 (18:48→23:47)
[2018-07-19] MEDS: Famotidine 20 MG Tab PO SCH (21:30)
[2018-07-19] MEDS: Docusate Sodium 100 MG Cap PO SCH (21:30)
[2018-07-20] MEDS ORDERED: diphenhydrAMINE 25 MG Cap PO ONE (01:16)
[2018-07-20] MEDS: Acetaminophen/oxyCODONE 325-5 MG Tab PO PRN ×3 (04:27→11:23)
--- NOTE | 2018-07-20 06:39 | PCM.CONSN ---
- General Info Date of Service: 07/20/18 Admission Dx/Problem (Free Text): Osteoarthritis of hip Subjective Update: In to see Lela. She sitting in the chair. She has no concerns. No nursing concerns. Functional Status: Reports: Pain Controlled, Tolerating Diet, Ambulating, Urinating, Incentive Spirometry. Denies: New Symptoms - Review of Systems General: Reports: No Symptoms HEENT: Reports: No Symptoms Pulmonary: Reports: No Symptoms Cardiovascular: Reports: No Symptoms Gastrointestinal: Reports: No Symptoms Genitourinary: Reports: No Symptoms Musculoskeletal: Reports: Leg Pain Skin: Reports: No Symptoms Neurological: Reports: No Symptoms Psychiatric: Reports: No Symptoms - Patient Data Vitals - Most Recent: Last Vital Signs Temp 98.1 F 07/20/18 04:22 Pulse 60 07/20/18 04:22 Resp 16 07/20/18 04:22 BP 100/57 L 07/20/18 04:22 Pulse Ox 97 07/20/18 04:22 Weight - Most Recent: 255 lb 4 oz I&O - Last 24 Hours: Intake & Output 07/19/18 07/19/18 07/20/18 14:59 22:59 06:59 Intake Total 300 1692 1700 Output Total 455 098 1550 Balance 200 1242 100 Lab Results Last 24 Hours: Laboratory Results - last 24 hr 07/19/18 Range/Units 07:55 Blood Type A POSITIVE Gel Antibody Screen Negative Med Orders - Current: Current Medications Bisacodyl (Dulcolax) 5 mg PO DAILY PRN PRN Reason: Constipation Cyclobenzaprine HCl (Flexeril) 10 mg PO TID PRN PRN Reason: Spasms Docusate Sodium (Colace) 100 mg PO BID [facility] Last Admin: 07/19/18 21:30 Dose: 100 mg Famotidine (Pepcid) 20 mg PO Q12H [facility] Last Admin: 07/19/18 21:30 Dose: 20 mg Clindamycin Phosphate 900 mg/ (Dextrose/Water) 106 mls @ 100 mls/hr IV Q8H [facility] Last Admin: 07/19/18 23:41 Dose: 100 mls/hr Ketorolac Tromethamine (Toradol) 15 mg IVPUSH Q6H PRN PRN Reason: Pain Magnesium Hydroxide (Milk Of Magnesia) 30 ml PO BID PRN PRN Reason: Constipation Morphine Sulfate (Morphine) 2 mg IVPUSH Q2H PRN PRN Reason: Breakthrough Pain Naloxone HCl (Narcan) 0.1 mg IVPUSH Q5M PRN PRN Reason: Oversedation Ondansetron HCl (Zofran) 4 mg IVPUSH Q6H PRN PRN Reason: Nausea/Vomiting Last Admin: 07/19/18 14:08 Dose: 4 mg Oxycodone/Acetaminophen (Percocet 325-5 Mg) 1 - 2 tab PO Q4H PRN PRN Reason: Pain Last Admin: 07/20/18 04:27 Dose: 1 tab Rivaroxaban (Xarelto) 10 mg PO DAILY DARIA Senna (Senna) 8.6 mg PO BID PRN PRN Reason: Constipation Discontinued Medications Acetaminophen (Tylenol) 975 mg PO ONETIME DARIA Stop: 07/19/18 12:00 Last Admin: 07/19/18 08:00 Dose: 975 mg Bupivacaine HCl (Marcaine 0.25%) Confirm Administered Dose 30 ml .ROUTE .STK- MED ONE Stop: 07/19/18 07:53 Last Admin: 07/19/18 09:42 Dose: 30 ml Bupivacaine HCl (Sensorcaine-Mpf 0.75%) Confirm Administered Dose 30 ml .ROUTE .STK-MED ONE Stop: 07/19/18 09:15 Cefazolin Sodium (Ancef) Confirm Administered Dose 2 gm .ROUTE .STK-MED ONE Stop: 07/19/18 07:10 Clindamycin Phosphate (Cleocin) Confirm Administered Dose 900 mg .ROUTE .STK- MED ONE Stop: 07/19/18 07:53 Last Admin: 07/19/18 09:37 Dose: 900 mg Clonidine HCl (Duraclon) Confirm Administered Dose 1,000 mcg .ROUTE .STK-MED ONE Stop: 07/19/18 07:14 Morphine Sulfate 8 mg/Epinephrine HCl 0.3 mg/Cefuroxime Sodium 750 mg/Ketorolac Tromethamine 30 mg/Sodium Chloride 27.9 ml 0 mg .XX ONETIME ONE Stop: 07/19/18 06:31 Last Admin: 07/19/18 12:09 Dose: Not Given Morphine Sulfate 8 mg/Epinephrine HCl 0.3 mg/Ketorolac Tromethamine 30 mg/ Sodium Chloride 37.9 ml 0 mg .XX ONETIME ONE Stop: 07/19/18 08:31 Last Admin: 07/19/18 11:45 Dose: Not Given Dexamethasone (Dexamethasone) Confirm Administered Dose 4 mg .ROUTE .STK-MED ONE Stop: 07/19/18 08:28 Dexamethasone (Dexamethasone) Confirm Administered Dose 4 mg .ROUTE .STK-MED ONE Stop: 07/19/18 09:39 Diphenhydramine HCl (Benadryl) 25 mg IVPUSH Q6H PRN PRN Reason: Pruritis Stop: 07/19/18 12:00 Diphenhydramine HCl (Benadryl) 25 mg PO ONETIME ONE Stop: 07/20/18 01:17 Last Admin: 07/20/18 01:32 Dose: 25 mg Ephedrine Sulfate (Ephedrine In Ns) Confirm Administered Dose 25 mg .ROUTE .STK- MED ONE Stop: 07/19/18 09:15 Ephedrine Sulfate (Ephedrine Sulfate) 5 mg IVPUSH ASDIRECTED PRN PRN Reason: Hypotension Stop: 07/19/18 12:00 Fentanyl (Sublimaze) Confirm Administered Dose 100 mcg .ROUTE .STK-MED ONE Stop: 07/19/18 07:09 Haloperidol Lactate (Haldol) 1 mg IVPUSH ONETIME PRN PRN Reason: PERSISTENT NAUSEA Stop: 07/19/18 12:00 Lactated Ringer's (Ringers, Lactated) 1,000 mls @ 125 mls/hr IV ASDIRECTED DARIA Stop: 07/19/18 23:00 Last Admin: 07/19/18 17:32 Dose: 125 mls/hr Lidocaine HCl (Xylocaine-Mpf 1%) Confirm Administered Dose 4 mls @ as directed .ROUTE .STK-MED ONE Stop: 07/19/18 07:10 Clindamycin Phosphate 900 mg/ (Dextrose/Water) 106 mls @ 212 mls/hr IV ONETIME ONE Stop: 07/19/18 08:29 Last Admin: 07/19/18 08:02 Dose: 212 mls/hr Lidocaine HCl (Xylocaine-Mpf 1%) Confirm Administered Dose 5 mls @ as directed .ROUTE .STK-MED ONE Stop: 07/19/18 09:15 Hetastarch/Sodium Chloride (Hetastarch 6% In Normal Saline) Confirm Administered Dose 500 mls @ as directed .ROUTE .STK-MED ONE Stop: 07/19/18 09:29 Lactated Ringer's (Ringers, Lactated) Confirm Administered Dose 1,000 mls @ as directed .ROUTE .[facility] ONE Stop: 07/19/18 09:44 Lactated Ringer's (Ringers, Lactated) Confirm Administered Dose 1,000 mls @ as directed .ROUTE .[facility] ONE Stop: 07/19/18 09:45 Iodine (Iodine 2% Mild Tincture) Confirm Administered Dose 30 ml .ROUTE .[facility] ONE Stop: 07/19/18 07:53 Last Admin: 07/19/18 09:35 Dose: 18 ml Ketamine HCl (Ketalar) Confirm Administered Dose 500 mg .ROUTE .[facility] ONE Stop: 07/19/18 07:10 Ketorolac Tromethamine (Toradol) Confirm Administered Dose 30 mg .ROUTE .[facility] ONE Stop: 07/19/18 09:39 Lidocaine/Sodium Bicarbonate (Buffered Lidocaine 1% In Ns 8.4%) 0.25 ml IDERM ONETIME PRN PRN Reason: Prior to IV Start Stop: 07/19/18 18:00 Midazolam HCl (Versed 1 Mg/Ml) Confirm Administered Dose 2 mg .ROUTE .ST-MED ONE Stop: 07/19/18 07:10 Midazolam HCl (Versed 1 Mg/Ml) Confirm Administered Dose 2 mg .ROUTE .[facility] ONE Stop: 07/19/18 09:33 Morphine Sulfate (Duramorph Pf) Confirm Administered Dose 10 mg .ROUTE .[facility] ONE Stop: 07/19/18 07:14 Ondansetron HCl (Zofran) Confirm Administered Dose 4 mg .ROUTE .[facility] ONE Stop: 07/19/18 08:28 Oxycodone HCl (Oxycontin) 10 mg PO ASDIRECTED [facility] Stop: 07/19/18 12:00 Last Admin: 07/19/18 08:01 Dose: 10 mg Phenylephrine HCl (Phenylephrine In Ns 100 Mcg/Ml) Confirm Administered Dose 1 mg .ROUTE .STK-MED ONE Stop: 07/19/18 09:15 Phenylephrine HCl (Phenylephrine In Ns 100 Mcg/Ml) Confirm Administered Dose 1 mg .ROUTE .STK-MED ONE Stop: 07/19/18 10:09 Pregabalin (Lyrica) 50 mg PO ONETIME [facility] Stop: 07/19/18 12:00 Last Admin: 07/19/18 08:00 Dose: 50 mg Propofol (Diprivan 20 Ml) Confirm Administered Dose 600 mg .ROUTE .STK-MED ONE Stop: 07/19/18 07:09 Scopolamine (Transderm-Scop) 1.5 mg TRDERM ONETIME ONE Stop: 07/19/18 08:01 Last Admin: 07/19/18 08:00 Dose: 1.5 mg Sodium Chloride (Saline Flush) 10 ml FLUSH ASDIRECTED PRN PRN Reason: Keep Vein Open Stop: 07/19/18 18:00 Tranexamic Acid (Cyklokapron) Confirm Administered Dose 1,000 mg .ROUTE .STK- MED ONE Stop: 07/19/18 07:52 Last Admin: 07/19/18 09:43 Dose: 1,000 mg Vancomycin HCl (Vancomycin) Confirm Administered Dose 1 gm .ROUTE .STK-MED ONE Stop: 07/19/18 07:53 Last Admin: 07/19/18 09:43 Dose: 1 gm - Exam Quality Assessment: DVT Prophylaxis. No: Supplemental Oxygen, Urine Catheter General: Alert, Oriented, Cooperative, No Acute Distress HEENT: Pupils Equal, Pupils Reactive, EOMI, Mucous Membr. Moist/[place] Neck: Supple, Trachea Midline Lungs: Clear to Auscultation, Normal Respiratory Effort Cardiovascular: Regular Rate, Regular Rhythm GI/Abdominal Exam: Normal Bowel Sounds, Soft, Non-Tender, No Distention (Female) Exam: Deferred Back Exam: Normal Inspection, Full Range of Motion Extremities: No Pedal Edema, Normal Capillary Refill, Leg Pain, Limited Range of Motion, Other (Bandage in place on left leg. Cooling pack in place ) Peripheral Pulses: 2+: Radial (L), Radial (R), Dorsalis Pedis (L), Dorsalis Pedis (R) Skin: Warm, Dry, Intact Wound/Incisions: Dressing Dry and Intact, No Drainage Neurological: No New Focal Deficit Psy/Mental Status: Alert, Normal Affect, Normal Mood Consult PN Assessment/Plan POD#: 1 Procedures: Procedures AGENT NOS ASSAY W/OPTIC (12/24/16) ASSAY OF AMYLASE (12/23/16) ASSAY OF FREE THYROXINE (09/30/17) ASSAY OF LIPASE (12/23/16) ASSAY OF PREALBUMIN (06/30/18) ASSAY OF SERUM ALBUMIN (12/15/17) ASSAY OF TROPONIN QUANT (08/19/15) ASSAY THYROID STIM HORMONE (09/30/17) C-REACTIVE PROTEIN (12/30/16) C-REACTIVE PROTEIN HS (07/24/16) CHEST X-RAY 1 VIEW FRONTAL (08/19/15) COLONOSCOPY AND BIOPSY (02/04/17) COMPLETE CBC W/AUTO DIFF WBC (06/30/18) COMPREHEN METABOLIC PANEL (06/30/18) CT ABD & PELV W/CONTRAST (05/30/14) CT ABD & PELVIS W/O CONTRAST (12/25/16) DRAIN/INJ JOINT/BURSA W/O US (03/26/18) EGD BIOPSY SINGLE/MULTIPLE (02/04/17) ELECTROCARDIOGRAM TRACING (08/19/15) EMERGENCY DEPT VISIT (12/30/16) EMERGENCY DEPT VISIT (09/23/16) EMERGENCY DEPT VISIT (08/19/15) EMERGENCY DEPT VISIT (06/17/14) EMERGENCY DEPT VISIT (05/30/14) EXC H-F-NK-SP B9+SHAYNA >4 CM (05/18/15) HPYLORI STOOL IA (12/24/16) HYDRATE IV INFUSION ADD-ON (12/30/16) HYDRATION IV INFUSION INIT (08/19/15) LIPID PANEL (07/24/16) METABOLIC PANEL TOTAL CA (12/15/17) MR-STAPH DNA AMP PROBE (04/23/15) PROTHROMBIN TIME (06/30/18) ROUTINE VENIPUNCTURE (12/30/16) STOOL CULTR AEROBIC BACT EA (12/24/16) THER/PROPH/DIAG INJ IV PUSH (12/30/16) THER/PROPH/DIAG INJ SC/IM (09/23/16) THROMBOPLASTIN TIME PARTIAL (12/15/17) TISSUE EXAM BY PATHOLOGIST (02/04/17) TX/PRO/DX INJ NEW DRUG ADDON (06/17/14) URINALYSIS AUTO W/O SCOPE (08/14/15) URINALYSIS AUTO W/SCOPE (12/30/16) URINE CULTURE/COLONY COUNT (12/15/17) X-RAY EXAM CHEST 2 VIEWS (06/30/18) X-RAY EXAM OF ABDOMEN (12/30/16) X-RAY EXAM OF FEMUR 2/> (09/19/16) X-RAY EXAM SERIES ABDOMEN (05/30/14) (1) S/P total hip arthroplasty SNOMED Code(s): 130519198861, 945785778812 Code(s): Z96.649 - PRESENCE OF UNSPECIFIED ARTIFICIAL HIP JOINT Priority: High Current Visit: Yes Qualifiers: Laterality: left Qualified Code(s): Z96.642 - Presence of left artificial hip joint (2) Osteoarthritis SNOMED Code(s): 885143674 Code(s): M19.90 - UNSPECIFIED OSTEOARTHRITIS, UNSPECIFIED SITE Priority: High Current Visit: Yes Qualifiers: Osteoarthritis location: hip Osteoarthritis type: primary Laterality: left Qualified Code(s): M16.12 - Unilateral primary osteoarthritis, left hip (3) Anxiety SNOMED Code(s): 58020279 Code(s): F41.9 - ANXIETY DISORDER, UNSPECIFIED Priority: Low Current Visit: No (4) Eczema SNOMED Code(s): 93828576 Code(s): L30.9 - DERMATITIS, UNSPECIFIED Priority: Low Current Visit: No Qualifiers: Eczema type: unspecified Qualified Code(s): L30.9 - Dermatitis, unspecified (5) Esophagitis SNOMED Code(s): 57215465 Code(s): K20.9 - ESOPHAGITIS, UNSPECIFIED Priority: Low Current Visit: No (6) Gastritis SNOMED Code(s): 4220549 Code(s): K29.70 - GASTRITIS, UNSPECIFIED, WITHOUT BLEEDING Priority: Low Current Visit: No Qualifiers: Gastritis type: unspecified gastritis Chronicity: unspecified Gastritis bleeding: presence of bleeding unspecified Qualified Code(s): K29.70 - Gastritis, unspecified, without bleeding (7) HLD (hyperlipidemia) SNOMED Code(s): 51718323 Code(s): E78.5 - HYPERLIPIDEMIA, UNSPECIFIED Priority: Low Current Visit : No Qualifiers: Hyperlipidemia type: unspecified Qualified Code(s): E78.5 - Hyperlipidemia , unspecified (8) HTN (hypertension) SNOMED Code(s): 68646395 Code(s): I10 - ESSENTIAL (PRIMARY) HYPERTENSION Priority: Low Current Visit: No Qualifiers: Hypertension type: unspecified Qualified Code(s): I10 - Essential (primary ) hypertension Problem List Initiated/Reviewed/Updated: Yes Plan: I/P: Acute: S/P left total hip arthroplasty - post-operative day 1 -DVT prophylaxis and pain management per primary care team -PT/OT -IS/RT -Monitor oxygen saturation -Titrate oxygen as needed -Vital signs stable -Monitor labs -Hgb 11.3 -eGFR >60 Osteoarthritis of left hip -Pain management per primary care team Chronic: HLD HTN Recurrent bronchitis Gastritis Esophagitis Anxiety Depression Anemia Exzema Plan: CM for discharge planning GI prophylaxis Home medications as indicated Other orders as listed above Routine AM labs She is a full code. Her PCP is Nella Mercado NP In to see Lela. From a hospitalist standpoint she is doing very well. Labs and vital signs look good. No concerns from patient or nursing. She is off O2. She has urinated. She has been working with therapies. She is cleared for discharge pending primary team and PT/OT approval. Thank you for allowing us to participate in the care of this patient!!
[2018-07-20] MEDS: Clindamycin Phosphate 900 MG in Dextrose 5% in Water 100 ML IV SCH ×2 (07:04)
[2018-07-20 08:02] VITALS: BP 110/58
--- NOTE | 2018-07-20 08:42 | PCM48HPAN ---
Post Anesthesia Note - EVALUATION WITHIN 48HRS OF ANESTHETIC Vital Signs in Normal Range: Yes Patient Participated in Evaluation: Yes Respiratory Function Stable: Yes Airway Patent: Yes Cardiovascular Function Stable: Yes Hydration Status Stable: Yes Pain Control Satisfactory: Yes Nausea and Vomiting Control Satisfactory: Yes Pulse Rate: 74 Resp Rate: 20 Temperature: 99.0 F Blood Pressure: 110/58
[2018-07-20] MEDS: Docusate Sodium 100 MG Cap PO SCH (08:44)
[2018-07-20] MEDS: Famotidine 20 MG Tab PO SCH (08:44)
[2018-07-20] MEDS ORDERED: Rivaroxaban 10 MG Tab PO SCH (09:00)
--- NOTE | 2018-07-21 08:33 | PCM.SURGPN ---
- General Info Date of Service: 07/20/18 POD#: 1 Functional Status: Reports: Pain Controlled, Tolerating Diet, Ambulating, Urinating, Incentive Spirometry, Other (Nursing states pt is doing very well.) - Patient Data Vitals - Most Recent: Last Vital Signs Temp 99.0 F 07/20/18 08:42 Pulse 74 07/20/18 08:42 Resp 20 07/20/18 08:42 BP 110/58 L 07/20/18 08:42 Pulse Ox 97 07/20/18 12:00 Weight - Most Recent: 255 lb 4 oz I&O - Last 24 Hours: Intake & Output 07/20/18 07/21/18 07/21/18 22:59 06:59 14:59 Intake Total 240 Balance 240 Lab Results Last 24 Hrs: Laboratory Results - last 24 hr 07/19/18 Range/Units 07:55 Blood Type A POSITIVE Gel Antibody Screen Negative Med Orders - Current: Current Medications Discontinued Medications Acetaminophen (Tylenol) 975 mg PO ONETIME DARIA Stop: 07/19/18 12:00 Last Admin: 07/19/18 08:00 Dose: 975 mg Bisacodyl (Dulcolax) 5 mg PO DAILY PRN PRN Reason: Constipation Bupivacaine HCl (Marcaine 0.25%) Confirm Administered Dose 30 ml .ROUTE .STK- MED ONE Stop: 07/19/18 07:53 Last Admin: 07/19/18 09:42 Dose: 30 ml Bupivacaine HCl (Sensorcaine-Mpf 0.75%) Confirm Administered Dose 30 ml .ROUTE .STK-MED ONE Stop: 07/19/18 09:15 Cefazolin Sodium (Ancef) Confirm Administered Dose 2 gm .ROUTE .STK-MED ONE Stop: 07/19/18 07:10 Clindamycin Phosphate (Cleocin) Confirm Administered Dose 900 mg .ROUTE .STK- MED ONE Stop: 07/19/18 07:53 Last Admin: 07/19/18 09:37 Dose: 900 mg Clonidine HCl (Duraclon) Confirm Administered Dose 1,000 mcg .ROUTE .STK-MED ONE Stop: 07/19/18 07:14 Morphine Sulfate 8 mg/Epinephrine HCl 0.3 mg/Cefuroxime Sodium 750 mg/Ketorolac Tromethamine 30 mg/Sodium Chloride 27.9 ml 0 mg .XX ONETIME ONE Stop: 07/19/18 06:31 Last Admin: 07/19/18 12:09 Dose: Not Given Morphine Sulfate 8 mg/Epinephrine HCl 0.3 mg/Ketorolac Tromethamine 30 mg/ Sodium Chloride 37.9 ml 0 mg .XX ONETIME ONE Stop: 07/19/18 08:31 Last Admin: 07/19/18 11:45 Dose: Not Given Cyclobenzaprine HCl (Flexeril) 10 mg PO TID PRN PRN Reason: Spasms Dexamethasone (Dexamethasone) Confirm Administered Dose 4 mg .ROUTE .STK-MED ONE Stop: 07/19/18 08:28 Dexamethasone (Dexamethasone) Confirm Administered Dose 4 mg .ROUTE .STK-MED ONE Stop: 07/19/18 09:39 Diphenhydramine HCl (Benadryl) 25 mg IVPUSH Q6H PRN PRN Reason: Pruritis Stop: 07/19/18 12:00 Diphenhydramine HCl (Benadryl) 25 mg PO ONETIME ONE Stop: 07/20/18 01:17 Last Admin: 07/20/18 01:32 Dose: 25 mg Docusate Sodium (Colace) 100 mg PO BID ON LICENSE OF [facility] Last Admin: 07/20/18 08:44 Dose: 100 mg Ephedrine Sulfate (Ephedrine In Ns) Confirm Administered Dose 25 mg .ROUTE .STK- MED ONE Stop: 07/19/18 09:15 Ephedrine Sulfate (Ephedrine Sulfate) 5 mg IVPUSH ASDIRECTED PRN PRN Reason: Hypotension Stop: 07/19/18 12:00 Famotidine (Pepcid) 20 mg PO Q12H ON LICENSE OF [facility] Last Admin: 07/20/18 08:44 Dose: 20 mg Fentanyl (Sublimaze) Confirm Administered Dose 100 mcg .ROUTE .STK-MED ONE Stop: 07/19/18 07:09 Haloperidol Lactate (Haldol) 1 mg IVPUSH ONETIME PRN PRN Reason: PERSISTENT NAUSEA Stop: 07/19/18 12:00 Lactated Ringer's (Ringers, Lactated) 1,000 mls @ 125 mls/hr IV ASDIRECTED DARIA Stop: 07/19/18 23:00 Last Admin: 07/19/18 17:32 Dose: 125 mls/hr Clindamycin Phosphate 900 mg/ (Dextrose/Water) 106 mls @ 100 mls/hr IV Q8H DARIA Last Admin: 07/20/18 07:04 Dose: 100 mls/hr Lidocaine HCl (Xylocaine-Mpf 1%) Confirm Administered Dose 4 mls @ as directed .ROUTE .STK-MED ONE Stop: 07/19/18 07:10 Clindamycin Phosphate 900 mg/ (Dextrose/Water) 106 mls @ 212 mls/hr IV ONETIME ONE Stop: 07/19/18 08:29 Last Admin: 07/19/18 08:02 Dose: 212 mls/hr Lidocaine HCl (Xylocaine-Mpf 1%) Confirm Administered Dose 5 mls @ as directed .ROUTE .STK-MED ONE Stop: 07/19/18 09:15 Hetastarch/Sodium Chloride (Hetastarch 6% In Normal Saline) Confirm Administered Dose 500 mls @ as directed .ROUTE .STK-MED ONE Stop: 07/19/18 09:29 Lactated Ringer's (Ringers, Lactated) Confirm Administered Dose 1,000 mls @ as directed .ROUTE .STK-MED ONE Stop: 07/19/18 09:44 Lactated Ringer's (Ringers, Lactated) Confirm Administered Dose 1,000 mls @ as directed .ROUTE .STK-MED ONE Stop: 07/19/18 09:45 Iodine (Iodine 2% Mild Tincture) Confirm Administered Dose 30 ml .ROUTE .STK- MED ONE Stop: 07/19/18 07:53 Last Admin: 07/19/18 09:35 Dose: 18 ml Ketamine HCl (Ketalar) Confirm Administered Dose 500 mg .ROUTE .STK-MED ONE Stop: 07/19/18 07:10 Ketorolac Tromethamine (Toradol) 15 mg IVPUSH Q6H PRN PRN Reason: Pain Ketorolac Tromethamine (Toradol) Confirm Administered Dose 30 mg .ROUTE .STK- MED ONE Stop: 07/19/18 09:39 Lidocaine/Sodium Bicarbonate (Buffered Lidocaine 1% In Ns 8.4%) 0.25 ml IDERM ONETIME PRN PRN Reason: Prior to IV Start Stop: 07/19/18 18:00 Magnesium Hydroxide (Milk Of Magnesia) 30 ml PO BID PRN PRN Reason: Constipation Midazolam HCl (Versed 1 Mg/Ml) Confirm Administered Dose 2 mg .ROUTE .STK-MED ONE Stop: 07/19/18 07:10 Midazolam HCl (Versed 1 Mg/Ml) Confirm Administered Dose 2 mg .ROUTE .STK-MED ONE Stop: 07/19/18 09:33 Morphine Sulfate (Morphine) 2 mg IVPUSH Q2H PRN PRN Reason: Breakthrough Pain Morphine Sulfate (Duramorph Pf) Confirm Administered Dose 10 mg .ROUTE .STK-MED ONE Stop: 07/19/18 07:14 Naloxone HCl (Narcan) 0.1 mg IVPUSH Q5M PRN PRN Reason: Oversedation Ondansetron HCl (Zofran) 4 mg IVPUSH Q6H PRN PRN Reason: Nausea/Vomiting Last Admin: 07/19/18 14:08 Dose: 4 mg Ondansetron HCl (Zofran) Confirm Administered Dose 4 mg .ROUTE .STK-MED ONE Stop: 07/19/18 08:28 Oxycodone HCl (Oxycontin) 10 mg PO ASDIRECTED ON LICENSE OF [facility] Stop: 07/19/18 12:00 Last Admin: 07/19/18 08:01 Dose: 10 mg Oxycodone/Acetaminophen (Percocet 325-5 Mg) 1 - 2 tab PO Q4H PRN PRN Reason: Pain Last Admin: 07/20/18 11:23 Dose: 2 tab Phenylephrine HCl (Phenylephrine In Ns 100 Mcg/Ml) Confirm Administered Dose 1 mg .ROUTE .STK-MED ONE Stop: 07/19/18 09:15 Phenylephrine HCl (Phenylephrine In Ns 100 Mcg/Ml) Confirm Administered Dose 1 mg .ROUTE .STK-MED ONE Stop: 07/19/18 10:09 Pregabalin (Lyrica) 50 mg PO ONETIME ON LICENSE OF [facility] Stop: 07/19/18 12:00 Last Admin: 07/19/18 08:00 Dose: 50 mg Propofol (Diprivan 20 Ml) Confirm Administered Dose 600 mg .ROUTE .STK-MED ONE Stop: 07/19/18 07:09 Rivaroxaban (Xarelto) 10 mg PO DAILY ON LICENSE OF [facility] Last Admin: 07/20/18 08:44 Dose: 10 mg Scopolamine (Transderm-Scop) 1.5 mg TRDERM ONETIME ONE Stop: 07/19/18 08:01 Last Admin: 07/19/18 08:00 Dose: 1.5 mg Senna (Senna) 8.6 mg PO BID PRN PRN Reason: Constipation Sodium Chloride (Saline Flush) 10 ml FLUSH ASDIRECTED PRN PRN Reason: Keep Vein Open Stop: 07/19/18 18:00 Tranexamic Acid (Cyklokapron) Confirm Administered Dose 1,000 mg .ROUTE .STK- MED ONE Stop: 07/19/18 07:52 Last Admin: 07/19/18 09:43 Dose: 1,000 mg Vancomycin HCl (Vancomycin) Confirm Administered Dose 1 gm .ROUTE .STK-MED ONE Stop: 07/19/18 07:53 Last Admin: 07/19/18 09:43 Dose: 1 gm - Exam Wound/Incisions: Dressing Dry and Intact General: Alert, Cooperative, No Acute Distress Lungs: Normal Respiratory Effort Extremities: Other (NVS intact for LLE. Bj's negative.) - Problem List Review Problem List Initiated/Reviewed/Updated: Yes - My Orders Last 24 Hours: Active Orders 24 hr Category Date Time Status Ready for Discharge [RC] PER UNIT ROUTINE Care 07/20/18 08:00 Active - Assessment Assessment (Free Text/Narrative):: POD#1 - left FRANCINE - Plan Plan (Free Text/Narrative):: 1. Hgb 11.3. 2. Xarelto for VTE prophylaxis (hx gastric bypass). 3. Discharge to home today. 4. Outpatient therapy. The pt's case was discussed with Dr. Rivas.
--- NOTE | 2018-07-22 07:19 | PCM.DCSUM1 ---
Discharge Summary - Hospital Course Brief History: Lela is a 58 yo female who underwent left FRANCINE with Dr. Rivas on . The procedure was completed under spinal anesthesia with sedation. The pt received jaz-operative antibiotic. The pt tolerated the procedure well and was admitted to the Medical-Surgical Unit. Medical management was provided by the Hospitalist service. The pt's Hospital course was uneventful. The pt participated in PT and OT and progress well. FRANCINE precautions were followed. The pt ambulated with a FWW. Hgb on POD#1 was 11.3. On POD#1, Xarelto was initiated for VTE prophylaxis. SCDs and TEDs were also used. The pt's surgical wound remained clean and dry. On POD#1, the pt was deemed appropriate for discharge to home. - Discharge Data Discharge Date: 07/20/18 Discharge Disposition: Home, Self-Care 01 Condition: Good - Patient Summary/Data Consults: Consultations 07/19/18 06:29 OT Evaluation and Treatment [CONS] Routine PT Evaluation and Treatment [CONS] Routine 07/19/18 06:30 Consult to Physician [CONS] Routine - Patient Instructions Diet: Usual Diet as Tolerated Activity: Apply Ice, As Tolerated, Elevate Extremity, Full Weight Bearing Activity, Other: Total hip arthroplasty precautions. Driving: Do Not Drive Showering/Bathing: May Shower Wound/Incision Care: Keep Operative Site/Wound Site Clean and Dry, Do NOT Change Dressing Notify Provider of: Fever, Increased Pain, Swelling and Redness, Drainage, Nausea and/or Vomiting Other/Special Instructions: Please get up and moving around every hour while awake. This helps to prevent blood clots. Please use your walker and have help with mobility as needed. Please take the Xarelto blood thinner medication daily as directed. At home, please complete the exercises that you learned during the Hospital stay. Schedule for physical therapy. Use the pain medication as needed. The medication may cause drowsiness and constipation. Contact your primary care provider for instructions if you are constipated. You may use a stool softener like docusate sodium or Colace 100mg twice daily and/or a laxative like Miralax daily for constipation. Increase your water and fiber intake while you are using the pain medication. Please try to wean from use of the pain medication as soon as able. Wear the ANDREW hose during the day and you may remove these at night. Elevate the limb to decrease swelling. Place ice to the area often. Place a towel between your skin and the blue pad. Use the incentive spirometer often. Take deep breaths throughout the day. Please keep the Mepilex dressing in place until follow-up. Notify the Clinic if the dressing becomes saturated. Increase your protein intake while you are healing. If you have diabetes, please closely monitor your blood sugars and notify your primary care provider with abnormal values. Elevated blood sugars increases the risk of infection. Call the Clinic with questions or concerns - [phone]. - Discharge Plan *PRESCRIPTION DRUG MONITORING PROGRAM REVIEWED*: No *COPY OF PRESCRIPTION DRUG MONITORING REPORT IN PATIENT ISABEL: No Prescriptions/Med Rec: Acetaminophen/oxyCODONE [Percocet 325-5 MG] 1 - 2 tab PO Q6H PRN #60 tablet PRN Reason: Pain Cyclobenzaprine [Flexeril] 10 mg PO TID PRN #40 tablet PRN Reason: Spasms Rivaroxaban [Xarelto] 10 mg PO DAILY #40 tablet Home Medications: Home Meds Enalapril Maleate 20 mg PO DAILY 02/03/17 [History] Cholecalciferol (Vitamin D3) [Vitamin D3] 5,000 unit PO DAILY 12/25/17 [History] Omeprazole 20 mg PO BID 12/25/17 [History] Venlafaxine [Effexor] 37.5 mg PO DAILY 12/28/17 [History] Acetaminophen/oxyCODONE [Percocet 325-5 MG] 1 - 2 tab PO Q6H PRN #60 tablet [Rx] Bisacodyl [Dulcolax] 5 mg PO DAILY PRN tablet 07/19/18 [Rx] Cyclobenzaprine [Flexeril] 10 mg PO TID PRN #40 tablet 07/19/18 [Rx] Docusate Sodium [Colace] 100 mg PO BID cap 07/19/18 [Rx] Magnesium Hydroxide [Milk of Magnesia] 30 ml PO BID PRN cup 07/19/18 [Rx] Rivaroxaban [Xarelto] 10 mg PO DAILY #40 tablet 07/19/18 [Rx] Sennosides [Senna] 8.6 mg PO BID PRN tablet 07/19/18 [Rx] Patient Handouts: Total Hip Replacement, Care After, Rivaroxaban oral tablets, Surgical Site Infections FA - [place] Referrals: Alise Ayala PA-C [Physician Track Broom Operator] - (1. Follow-up with Alise Ayala PA-C on Friday, July 27, 2018 at 11:00am. 2. Follow-up with Alise Ayala PA-C on Friday, August 03, 2018 at 11:00am.) - Patient Data Vitals - Most Recent: Last Vital Signs Temp 99.0 F 07/20/18 08:42 Pulse 74 07/20/18 08:42 Resp 20 07/20/18 08:42 BP 110/58 L 07/20/18 08:42 Pulse Ox 97 07/20/18 12:00 Weight - Most Recent: 255 lb 4 oz Med Orders - Current: Current Medications Discontinued Medications Acetaminophen (Tylenol) 975 mg PO ONETIME DARIA Stop: 07/19/18 12:00 Last Admin: 07/19/18 08:00 Dose: 975 mg Bisacodyl (Dulcolax) 5 mg PO DAILY PRN PRN Reason: Constipation Bupivacaine HCl (Marcaine 0.25%) Confirm Administered Dose 30 ml .ROUTE .STK- MED ONE Stop: 07/19/18 07:53 Last Admin: 07/19/18 09:42 Dose: 30 ml Bupivacaine HCl (Sensorcaine-Mpf 0.75%) Confirm Administered Dose 30 ml .ROUTE .STK-MED ONE Stop: 07/19/18 09:15 Cefazolin Sodium (Ancef) Confirm Administered Dose 2 gm .ROUTE .STK-MED ONE Stop: 07/19/18 07:10 Clindamycin Phosphate (Cleocin) Confirm Administered Dose 900 mg .ROUTE .STK- MED ONE Stop: 07/19/18 07:53 Last Admin: 07/19/18 09:37 Dose: 900 mg Clonidine HCl (Duraclon) Confirm Administered Dose 1,000 mcg .ROUTE .STK-MED ONE Stop: 07/19/18 07:14 Morphine Sulfate 8 mg/Epinephrine HCl 0.3 mg/Cefuroxime Sodium 750 mg/Ketorolac Tromethamine 30 mg/Sodium Chloride 27.9 ml 0 mg .XX ONETIME ONE Stop: 07/19/18 06:31 Last Admin: 07/19/18 12:09 Dose: Not Given Morphine Sulfate 8 mg/Epinephrine HCl 0.3 mg/Ketorolac Tromethamine 30 mg/ Sodium Chloride 37.9 ml 0 mg .XX ONETIME ONE Stop: 07/19/18 08:31 Last Admin: 07/19/18 11:45 Dose: Not Given Cyclobenzaprine HCl (Flexeril) 10 mg PO TID PRN PRN Reason: Spasms Dexamethasone (Dexamethasone) Confirm Administered Dose 4 mg .ROUTE .STK-MED ONE Stop: 07/19/18 08:28 Dexamethasone (Dexamethasone) Confirm Administered Dose 4 mg .ROUTE .STK-MED ONE Stop: 07/19/18 09:39 Diphenhydramine HCl (Benadryl) 25 mg IVPUSH Q6H PRN PRN Reason: Pruritis Stop: 07/19/18 12:00 Diphenhydramine HCl (Benadryl) 25 mg PO ONETIME ONE Stop: 07/20/18 01:17 Last Admin: 07/20/18 01:32 Dose: 25 mg Docusate Sodium (Colace) 100 mg PO BID [facility] Last Admin: 07/20/18 08:44 Dose: 100 mg Ephedrine Sulfate (Ephedrine In Ns) Confirm Administered Dose 25 mg .ROUTE .STK- MED ONE Stop: 07/19/18 09:15 Ephedrine Sulfate (Ephedrine Sulfate) 5 mg IVPUSH ASDIRECTED PRN PRN Reason: Hypotension Stop: 07/19/18 12:00 Famotidine (Pepcid) 20 mg PO Q12H [facility] Last Admin: 07/20/18 08:44 Dose: 20 mg Fentanyl (Sublimaze) Confirm Administered Dose 100 mcg .ROUTE .STK-MED ONE Stop: 07/19/18 07:09 Haloperidol Lactate (Haldol) 1 mg IVPUSH ONETIME PRN PRN Reason: PERSISTENT NAUSEA Stop: 07/19/18 12:00 Lactated Ringer's (Ringers, Lactated) 1,000 mls @ 125 mls/hr IV ASDIRECTED [facility] Stop: 07/19/18 23:00 Last Admin: 07/19/18 17:32 Dose: 125 mls/hr Clindamycin Phosphate 900 mg/ (Dextrose/Water) 106 mls @ 100 mls/hr IV Q8H [facility] Last Admin: 07/20/18 07:04 Dose: 100 mls/hr Lidocaine HCl (Xylocaine-Mpf 1%) Confirm Administered Dose 4 mls @ as directed .ROUTE .STK-MED ONE Stop: 07/19/18 07:10 Clindamycin Phosphate 900 mg/ (Dextrose/Water) 106 mls @ 212 mls/hr IV ONETIME ONE Stop: 07/19/18 08:29 Last Admin: 07/19/18 08:02 Dose: 212 mls/hr Lidocaine HCl (Xylocaine-Mpf 1%) Confirm Administered Dose 5 mls @ as directed .ROUTE .STK-MED ONE Stop: 07/19/18 09:15 Hetastarch/Sodium Chloride (Hetastarch 6% In Normal Saline) Confirm Administered Dose 500 mls @ as directed .ROUTE .STK-MED ONE Stop: 07/19/18 09:29 Lactated Ringer's (Ringers, Lactated) Confirm Administered Dose 1,000 mls @ as directed .ROUTE .STK-MED ONE Stop: 07/19/18 09:44 Lactated Ringer's (Ringers, Lactated) Confirm Administered Dose 1,000 mls @ as directed .ROUTE .STK-MED ONE Stop: 07/19/18 09:45 Iodine (Iodine 2% Mild Tincture) Confirm Administered Dose 30 ml .ROUTE .STK- MED ONE Stop: 07/19/18 07:53 Last Admin: 07/19/18 09:35 Dose: 18 ml Ketamine HCl (Ketalar) Confirm Administered Dose 500 mg .ROUTE .STK-MED ONE Stop: 07/19/18 07:10 Ketorolac Tromethamine (Toradol) 15 mg IVPUSH Q6H PRN PRN Reason: Pain Ketorolac Tromethamine (Toradol) Confirm Administered Dose 30 mg .ROUTE .STK- MED ONE Stop: 07/19/18 09:39 Lidocaine/Sodium Bicarbonate (Buffered Lidocaine 1% In Ns 8.4%) 0.25 ml IDERM ONETIME PRN PRN Reason: Prior to IV Start Stop: 07/19/18 18:00 Magnesium Hydroxide (Milk Of Magnesia) 30 ml PO BID PRN PRN Reason: Constipation Midazolam HCl (Versed 1 Mg/Ml) Confirm Administered Dose 2 mg .ROUTE .STK-MED ONE Stop: 07/19/18 07:10 Midazolam HCl (Versed 1 Mg/Ml) Confirm Administered Dose 2 mg .ROUTE .STK-MED ONE Stop: 07/19/18 09:33 Morphine Sulfate (Morphine) 2 mg IVPUSH Q2H PRN PRN Reason: Breakthrough Pain Morphine Sulfate (Duramorph Pf) Confirm Administered Dose 10 mg .ROUTE .STK-MED ONE Stop: 07/19/18 07:14 Naloxone HCl (Narcan) 0.1 mg IVPUSH Q5M PRN PRN Reason: Oversedation Ondansetron HCl (Zofran) 4 mg IVPUSH Q6H PRN PRN Reason: Nausea/Vomiting Last Admin: 07/19/18 14:08 Dose: 4 mg Ondansetron HCl (Zofran) Confirm Administered Dose 4 mg .ROUTE .STK-MED ONE Stop: 07/19/18 08:28 Oxycodone HCl (Oxycontin) 10 mg PO ASDIRECTED [facility] Stop: 07/19/18 12:00 Last Admin: 07/19/18 08:01 Dose: 10 mg Oxycodone/Acetaminophen (Percocet 325-5 Mg) 1 - 2 tab PO Q4H PRN PRN Reason: Pain Last Admin: 07/20/18 11:23 Dose: 2 tab Phenylephrine HCl (Phenylephrine In Ns 100 Mcg/Ml) Confirm Administered Dose 1 mg .ROUTE .STK-MED ONE Stop: 07/19/18 09:15 Phenylephrine HCl (Phenylephrine In Ns 100 Mcg/Ml) Confirm Administered Dose 1 mg .ROUTE .STK-MED ONE Stop: 07/19/18 10:09 Pregabalin (Lyrica) 50 mg PO ONETIME [facility] Stop: 07/19/18 12:00 Last Admin: 07/19/18 08:00 Dose: 50 mg Propofol (Diprivan 20 Ml) Confirm Administered Dose 600 mg .ROUTE .STK-MED ONE Stop: 07/19/18 07:09 Rivaroxaban (Xarelto) 10 mg PO DAILY [facility] Last Admin: 07/20/18 08:44 Dose: 10 mg Scopolamine (Transderm-Scop) 1.5 mg TRDERM ONETIME ONE Stop: 07/19/18 08:01 Last Admin: 07/19/18 08:00 Dose: 1.5 mg Senna (Senna) 8.6 mg PO BID PRN PRN Reason: Constipation Sodium Chloride (Saline Flush) 10 ml FLUSH ASDIRECTED PRN PRN Reason: Keep Vein Open Stop: 07/19/18 18:00 Tranexamic Acid (Cyklokapron) Confirm Administered Dose 1,000 mg .ROUTE .STK- MED ONE Stop: 07/19/18 07:52 Last Admin: 07/19/18 09:43 Dose: 1,000 mg Vancomycin HCl (Vancomycin) Confirm Administered Dose 1 gm .ROUTE .STK-MED ONE Stop: 07/19/18 07:53 Last Admin: 07/19/18 09:43 Dose: 1 gm
--- NOTE | 2018-07-28 05:42 | PCM.OPNOTE ---
- General Post-Op/Procedure Note Date of Surgery/Procedure: 07/19/18 Operative Procedure(s): left total hip arthroplasty Pre Op Diagnosis: left hip osteoarthrosis Post-Op Diagnosis: Same Anesthesia Technique: Local, MAC, Spinal Primary Surgeon: Bal Rivas Anesthesia Provider: Zohra Joseph Cupola Tender Helper: Alise Ayala Cupola Tender Helper: Ema Cheng EBYahaira in mLs: 400 Complications: None Condition: Good Free Text/Narrative:: size 6 stem size 52mm cup size 36+5
--- NOTE | 2018-07-28 22:54 | OR ---
DATE OF OPERATION: 07/19/2018 SURGEON: Bal Rivas MD OPERATION PERFORMED: Left total hip arthroplasty. PREOPERATIVE DIAGNOSIS: Left hip osteoarthrosis. POSTOPERATIVE DIAGNOSIS: Left hip osteoarthrosis. ANESTHESIA: Local MAC with spinal. ANESTHESIA PROVIDER: Alcira Cunha. ASSISTANTS: Alise Ayala PA-C and Ema Cheng LPN. ESTIMATED BLOOD LOSS: 400 mL. COMPLICATIONS: None. CONDITION: Stable. IMPLANTS: 1. Good size 6 Accolade II stem. 2. [place] size 52 mm Tritanium acetabular cup. 3. Good size 36 +5 mm ceramic Biolox head. DESCRIPTION OF PROCEDURE: The patient was identified in the preoperative holding area where proper site was marked and identified by the surgeon. The patient was taken back to the operating theater where after adequate anesthesia, the patient was placed in a right lateral decubitus position. An axillary roll was placed. All bony prominences were well padded. Pegs were then placed and the patient's gluteal fold was parallel to the floor. Pegs were then well padded. At this time, the left hip was then sterilely prepped and draped in the usual sterile fashion. OR time-out was performed. The patient received 2 g IV Ancef. At this time, standard posterior incision was made centered over the greater trochanter. This was taken down to the IT band and gluteal fascia, which was incised along the incisional length. Charnley retractor was then placed and the neurovascular bundles were protected. At this time, the short external rotators were identified and take down of the short external rotators as well as the capsule was done from the level of the piriformis down to the lesser trochanter. At this time, the hip was then dislocated and neck cut was then completed. The femoral head was then sized on the back table. Anterior and posterior acetabular retractors were placed. Remaining labrum was removed along with the palmar. At this time, starting with a 44 reamer, I was able to ream up to a 52, which was found to have good adequate bite. At this time, a 52 mm Tritanium acetabular cup was impacted into place and a roughly 45 to 50 degrees of abduction and 20 degrees of anteversion. At this time, the 36 mm a 10 degree elevated liner was impacted into place. Attention was then turned to the femur. A femoral elevator was placed around the lesser trochanter. Box chisel was used out laterally. Starter awl was placed down the canal. Starting with the 0 broach, I was able to broach up to a size 6, which was found to be rotationally and vertically stable. We did trial implant 36 +0 head, but it was found to be a little bit short, so at this time, we trialed a 36 +5. This was found to have adequate taoism of leg lengths and was stable throughout range of motion. Bone hook was then used to dislocate the hip and a size 6 Accolade II stem was then impacted into place along with a 36 +5 mm Biolox ceramic head. The hip was then relocated and #5 Ethibond suture was used for closure of the short external rotators and capsule. A 1 L dilute Betadine solution was irrigated through the hip along with 3 L pulse lavage irrigation with Ancef. Topical tranexamic acid was as well as vancomycin powder was then placed. A #2 barbed suture was used for closure of the IT band and gluteal fascia, 2-0 Vicryl was used subcutaneously and Prineo was used for the skin. The patient tolerated the procedure well and sent to PACU in stable condition. DAISY /[id number]
== END 2018-07-20 12:50 | disposition home or self-care (01) | DRG 301 ==
LOC: JD.MS 07:09
PROVIDERS: ADMIT Orthopaedic Surgery; ATTEND Orthopaedic Surgery
PROC: 3E0U029 Introduction of Other Anti-infective into Joints, Open Approach (ICD-10-PCS; principal; 2018-07-19)
PROC: 0SRB0JZ Replacement of Left Hip Joint with Synthetic Substitute, Open Approach (ICD-10-PCS; principal; 2018-07-19)
DX: M16.12 Unilateral primary osteoarthritis, left hip (principal); Z96.641 Presence of right artificial hip joint; F32.9 Major depressive disorder, single episode, unspecified; K29.70 Gastritis, unspecified, without bleeding; I10 Essential (primary) hypertension; F41.9 Anxiety disorder, unspecified; E78.00 Pure hypercholesterolemia, unspecified; E78.5 Hyperlipidemia, unspecified; E55.9 Vitamin D deficiency, unspecified; L30.9 Dermatitis, unspecified; D64.9 Anemia, unspecified; K21.0 Gastro-esophageal reflux disease with esophagitis; H54.7 Unspecified visual loss; Z88.1 Allergy status to other antibiotic agents; Z88.0 Allergy status to penicillin; Z87.891 Personal history of nicotine dependence; Z98.84 Bariatric surgery status; Z90.710 Acquired absence of both cervix and uterus; Z79.899 Other long term (current) drug therapy
CPT/HCPCS: 01214; 36415; 73501-26-LT; 73501-LT; 80053; 85027; 86850; 86900; 86901; 87641; 94762; 97110-GP; 97116-GP; 97161-GP; 97165-GO; 97535-GO; A9270-GY; C1776; J0171; J0690; J0735; J1100; J1885; J2001; J2250; J2270; J2370; J2405; J2704; J3010; J3370; J3490; J7050; J7060; J7120

== ENCOUNTER 2021-01-09 10:39 | Emergency (ER) | payer BC ==
[2021-01-09 10:49] VITALS: BP 147/95; PULSE 81
--- NOTE | 2021-01-09 10:52 | EDM.PDOC ---
ED HPI GENERAL MEDICAL PROBLEM - General Chief Complaint: Chest Pain Stated Complaint: CHEST PAIN Time Seen by Provider: 01/09/21 10:52 Source of Information: Reports: Patient, Family (spouse) History Limitations: Reports: No Limitations - History of Present Illness INITIAL COMMENTS - FREE TEXT/NARRATIVE: 60-year-old female presents to the ED in the accompaniment of her from [facility]. She was seen earlier this morning at the [facility] complaining of central chest pressure discomfort that came on yesterday afternoon and has persisted throughout the night and this morning. She did not eat this morning. No associated burping belching or feeling of need to do so. She has a constant pressure sitting in the central aspect of her lower one half of her sternum that radiates through to her back between her shoulder blades. Pain also radiates along the anterior costal angles bilaterally. She has no known history of a hiatal hernia. ECG done at the clinic and again here is not showing any evidence of acute ischemic change. She has no known history of heart disease. Has mild hypertension and obesity. She had COVID-19 illness back in June 2020 but feels she has recovered completely other than an altered sense of taste. Patient was too uncomfortable to lie flat in bed last night and spent a good portion of the night sitting up in the easy chair to sleep. Onset: Sudden Onset Date: 01/08/21 Onset Time: 15:00 Duration: Hour(s):, Getting Worse Location: Reports: Chest (She also feels discomfort along the costal margin bilaterally on each side of the abdomen.) Quality: Reports: Ache, Pressure Severity: Moderate Improves with: Reports: None (5-6 out of 10.) Worsens with: Reports: None Context: Reports: Other (Came on after dinner yesterday the mid afternoon and just will not go away). Denies: Activity, Exercise, Lifting, Sick Contact, Trauma Associated Symptoms: Reports: Chest Pain, Loss of Appetite, Malaise, Nausea/Vomiting. Denies: Confusion, Cough, cough w sputum, Diaphoresis, Fever/Chills, Headaches, Rash, Seizure (Nausea last night but no vomiting), Shortness of Breath, Syncope, Weakness Treatments RESPIRATORY THERAPIST ASSISTANT: Reports: Other (see below) (Only her usual meds.) Middle Chest Pain Score (Numeric/FACES): 4 - Related Data Allergies Allergy/AdvReac Type Severity Reaction Status Date / Time amoxicillin Allergy Intermediate Hives Verified 01/09/21 11:53 amoxicillin trihydrate Allergy Intermediate Hives Verified 01/09/21 11:53 [From Augmentin] potassium clavulanate Allergy Intermediate Hives Verified 01/09/21 11:53 [From Augmentin] Home Meds: Home Meds Venlafaxine [Effexor] 37.5 mg PO DAILY 12/28/17 [History] Dicyclomine [Bentyl] 20 mg PO Q6H PRN #5 tablet 01/09/21 [Rx] Meloxicam 15 mg PO DAILY 01/09/21 [History] Olmesartan Medoxomil 20 mg PO DAILY 01/09/21 [History] Past Medical History HEENT History: Reports: Impaired Vision, Otitis Media, Sinusitis, Other (See Below) Other HEENT History: pharyngitis, wears glasses Cardiovascular History: Reports: High Cholesterol, Hypertension Respiratory History: Reports: Bronchitis, Recurrent, Other (See Below) Other Respiratory History: cough Gastrointestinal History: Reports: Gastritis, Other (See Below) Other Gastrointestinal History: esophagitis, abdominal pain Genitourinary History: Reports: Other (See Below) Other Genitourinary History: urinary urgency LEAVE COORDINATOR History: Reports: Other (See Below) Other LEAVE COORDINATOR History: hot flashes Musculoskeletal History: Reports: Other (See Below) Other Musculoskeletal History: back pain, R knee pain Neurological History: Reports: None Psychiatric History: Reports: Anxiety, Depression Endocrine/Metabolic History: Reports: None Hematologic History: Reports: Anemia Immunologic History: Reports: None Oncologic (Cancer) History: Reports: None Dermatologic History: Reports: Other (See Below) Other Dermatologic History: eczema, viral warts, plantar wart - Infectious Disease History Infectious Disease History: Reports: Chicken Pox - Past Surgical History Head Surgeries/Procedures: Reports: None HEENT Surgical History: Reports: Tonsillectomy Cardiovascular Surgical History: Reports: None Respiratory Surgical History: Reports: None GI Surgical History: Reports: Appendectomy, Bariatric Procedure, Cholecystectomy, Other (See Below) Other GI Surgeries/Procedures: Lapband Female Surgical History: Reports: Hysterectomy, Oophorectomy, Tubal Ligation Endocrine Surgical History: Reports: None Neurological Surgical History: Reports: None Musculoskeletal Surgical History: Reports: Arthroscopic Knee, Hip Replacement (Bilateral total hip joint replacements.), Other (See Below) Other Musculoskeletal Surgeries/Procedures:: right elbow surgery-pinches nerve, knee surgery Oncologic Surgical History: Reports: None Social & Family History - Family History Family Medical History: No Pertinent Family History Cardiac: Reports: Bypass, Hypertension Endocrine/Metabolic: Reports: Diabetes, type II Oncologic: Reports: Leukemia, Uterine - Tobacco Use Tobacco Use Status *Q: Never Tobacco User - Caffeine Use Caffeine Use: Reports: Coffee, Soda Caffeine Use Comment: coffee at times and 1-2 sodas per day - Recreational Drug Use Recreational Drug Use: No - Living Situation & Occupation Living situation: Reports: Occupation: Employed ED ROS GENERAL - Review of Systems Review Of Systems: See Below Constitutional: Reports: Decreased Appetite (Since). Denies: Fever, Chills, M alaise, Weakness, Fatigue, Weight Loss HEENT: Reports: Glasses ( chest pain development yesterday.) Respiratory: Denies: Shortness of Breath, Wheezing, Pleuritic Chest Pain, Cough, Sputum Cardiovascular: Reports: Chest Pain, Blood Pressure Problem. Denies: Claudication (See history of present illness), Dyspnea on Exertion, Edema, Lightheadedness, Orthopnea, Palpitations Endocrine: Reports: Fatigue GI/Abdominal: Reports: No Symptoms, Abdominal Pain, Anorexia, Black Stool, Bloody Stool, Constipation, Nausea (Mild problems with constipation. Nausea nausea during the night.) : Reports: Frequency, Incontinence Musculoskeletal: Reports: Back Pain, Joint Pain (Urgent stress components) Skin: Reports: No Symptoms ( knees hips neck at times) Neurological: Reports: No Symptoms Psychiatric: Reports: Depression (He is on medicine for depression and anxiety.) Hematologic/Lymphatic: Reports: No Symptoms ED EXAM, GENERAL - Physical Exam Exam: See Below Exam Limited By: No Limitations General Appearance: Alert, WD/WN, No Apparent Distress, Other (Over 92.) Eye Exam: Bilateral Eye: Normal Inspection, PERRL (No scleral icterus or blepharal pallor.) Throat/Mouth: Normal Inspection (Tongue is moist.), Normal Lips, Normal Oropharynx, Other Head: Atraumatic, Normocephalic Neck: Normal Inspection, Supple, Non-Tender, Full Range of Motion. No: Carotid Bruit, Lymphadenopathy (L), Lymphadenopathy (R), Thyromegaly Respiratory/Chest: No Respiratory Distress, Lungs Clear, Normal Breath Sounds, No Accessory Muscle Use Cardiovascular: Normal Peripheral Pulses, Regular Rate, Rhythm, No Edema, No Gallop, No Murmur, No Rub Peripheral Pulses: 2+: Carotid (L), Carotid (R), Posterior Tibial (L), Posterior Tibial (R), Dorsalis Pedis (L), Dorsalis Pedis (R) GI/Abdominal: Normal Bowel Sounds, Soft, Non-Tender, No Organomegaly, No Mass, Pelvis Stable, Other (Mildly obese. Evidence of previous surgery for total hysterectomy BSO and cholecystectomy) Back Exam: Normal Inspection, Full Range of Motion, Other (Mild increased lordotic curvature.). No: CVA Tenderness (L), CVA Tenderness (R) Extremities: Normal Inspection, Normal Range of Motion, Non-Tender, No Pedal Edema, Other Neurological: Alert, Oriented, CN II-XII Intact (Clinical evidence of DVT in either lower extremity.), Normal Cognition Psychiatric: Normal Affect, Normal Mood Skin Exam: Warm, Dry, Intact, Normal Color, No Rash #1 Interpretation EKG Date: 01/09/21 Time: 10:48 Rhythm: NSR Rate (Beats/Min): 74 [place]: Normal P-Wave: Present QRS: Other (Initial poor R wave progression consider old anteroseptal myocardial infarction. There is decreased voltage throughout the precordial leads.) ST-T: Other (Nonspecific T wave flattening aVL.) QT: Prolonged EKG Interpretation Comments: Borderline ECG Course - Vital Signs Last Recorded V/S: Last Vital Signs Temp 36.2 C 01/09/21 10:45 Pulse 81 01/09/21 10:45 Resp 16 01/09/21 10:45 BP 147/95 H 01/09/21 10:45 Pulse Ox 93 L 01/09/21 10:45 - Orders/Labs/Meds Orders: Active Orders 24 hr Category Date Time Status EKG Documentation Completion [RC] ASDIRECTED Care 01/09/21 11:14 Active Dextrose 5%-0.9% NaCl [Dextrose 5%-Normal Saline] 1,000 Med 01/09/21 11:15 Active ml IV ASDIRECTED Sodium Chloride 0.9% [Normal Saline] 100 ml Med 01/09/21 12:15 Active IV ASDIRECTED EKG 12 Lead [EK] Stat Ther 02/17/21 11:14 Ordered Medication Orders Dextrose/Sodium Chloride (Dextrose 5%-Normal Saline) 1,000 mls @ 125 mls/hr IV ASDIRECTED DARIA Sodium Chloride (Normal Saline) 100 mls @ 60 mls/hr IV ASDIRECTED DARIA Last Admin: 01/09/21 12:19 Dose: 60 mls/hr Documented by: GEOFFREY Labs: Laboratory Tests 01/09/21 01/09/21 01/09/21 Range/Units 10:50 10:50 10:50 WBC 5.96 (3.98-10.04) K/mm3 RBC 5.37 H (3.98-5.22) M/mm3 Hgb 15.4 D (11.2-15.7) gm/dl Hct 47.4 H (34.1-44.9) % MCV 88.3 D (79.4-94.8) fl MCH 28.7 (25.6-32.2) pg MCHC 32.5 (32.2-35.5) g/dl RDW Std Deviation 44.7 (36.4-46.3) fL Plt Count 295 (182-369) K/mm3 MPV 10.4 (9.4-12.3) fl Neut % (Auto) 56.3 (34.0-71.1) % Lymph % (Auto) 31.9 (19.3-51.7) % [place] % (Auto) 6.4 (4.7-12.5) % Eos % (Auto) 4.2 (0.7-5.8) Baso % (Auto) 1.0 (0.1-1.2) % Neut # (Auto) 3.36 (1.56-6.13) K/mm3 Lymph # (Auto) 1.90 (1.18-3.74) K/mm3 Millard # (Auto) 0.38 H (0.24-0.36) K/mm3 Eos # (Auto) 0.25 (0.04-0.36) K/mm3 Baso # (Auto) 0.06 (0.01-0.08) K/mm3 PT 10.5 (9.7-12.0) SECONDS INR 0.98 APTT 26.3 (21.7-31.4) SECONDS D-Dimer, Quantitative (0.19-0.50) mg/L Sodium 139 (136-145) mEq/L Potassium 4.4 (3.5-5.1) mEq/L Chloride 105 (98-107) mEq/L Carbon Dioxide 25 (21-32) mEq/L Anion Gap 13.4 (5-15) BUN 19 H (7-18) mg/dL Creatinine 0.8 (0.55-1.02) mg/dL Est Cr Clr Drug Dosing 70.88 mL/min Estimated GFR (MDRD) > 60 (>60) mL/min BUN/Creatinine Ratio 23.8 H (14-18) Glucose 95 (74-106) mg/dL Calcium 9.0 (8.5-10.1) mg/dL Magnesium 2.2 (1.8-2.4) mg/dl Total Bilirubin 0.8 (0.2-1.0) mg/dL AST 30 (15-37) U/L ALT 51 (14-59) U/L Alkaline Phosphatase 77 (46-116) U/L CK-MB (CK-2) 5.6 H (0-3.6) ng/ml Troponin I < 0.017 (0.00-0.056) ng/mL C-Reactive Protein 0.9 (<1.0) mg/dL NT-Pro-B Natriuret Pep (0-125) pg/mL Total Protein 7.9 (6.4-8.2) g/dl Albumin 3.9 (3.4-5.0) g/dl Globulin 4.0 gm/dL Albumin/Globulin Ratio 1.0 (1-2) Lipase 103 (73-393) U/L Urine Color (Yellow) Urine Appearance (Clear) Urine pH (5.0-8.0) Ur Specific [place] (1.005-1.030) Urine Protein (Negative) Urine Glucose (UA) (Negative) Urine Ketones (Negative) Urine Occult Blood (Negative) Urine Nitrite (Negative) Urine Bilirubin (Negative) Urine Urobilinogen (0.2-1.0) Ur Leukocyte Esterase (Negative) Urine RBC (0-5) /hpf Urine WBC (0-5) /hpf Ur Squamous Epith Cells (0-5) /hpf Urine Bacteria (FEW) /hpf Urine Mucus (FEW) /hpf 02/17/21 02/17/21 02/17/21 Range/Units 10:50 10:50 11:30 WBC (3.98-10.04) K/mm3 RBC (3.98-5.22) M/mm3 Hgb (11.2-15.7) gm/dl Hct (34.1-44.9) % MCV (79.4-94.8) fl MCH (25.6-32.2) pg MCHC (32.2-35.5) g/dl RDW Std Deviation (36.4-46.3) fL Plt Count (182-369) K/mm3 MPV (9.4-12.3) fl Neut % (Auto) (34.0-71.1) % Lymph % (Auto) (19.3-51.7) % Mill[place] % (Auto) (4.7-12.5) % Eos % (Auto) (0.7-5.8) Baso % (Auto) (0.1-1.2) % Neut # (Auto) (1.56-6.13) K/mm3 Lymph # (Auto) (1.18-3.74) K/mm3 [place] # (Auto) (0.24-0.36) K/mm3 Eos # (Auto) (0.04-0.36) K/mm3 Baso # (Auto) (0.01-0.08) K/mm3 PT (9.7-12.0) SECONDS INR APTT (21.7-31.4) SECONDS D-Dimer, Quantitative 0.78 H (0.19-0.50) mg/L Sodium (136-145) mEq/L Potassium (3.5-5.1) mEq/L Chloride (98-107) mEq/L Carbon Dioxide (21-32) mEq/L Anion Gap (5-15) BUN (7-18) mg/dL Creatinine (0.55-1.02) mg/dL Est Cr Clr Drug Dosing mL/min Estimated GFR (MDRD) (>60) mL/min BUN/Creatinine Ratio (14-18) Glucose (74-106) mg/dL Calcium (8.5-10.1) mg/dL Magnesium (1.8-2.4) mg/dl Total Bilirubin (0.2-1.0) mg/dL AST (15-37) U/L ALT (14-59) U/L Alkaline Phosphatase (46-116) U/L CK-MB (CK-2) (0-3.6) ng/ml Troponin I (0.00-0.056) ng/mL C-Reactive Protein (<1.0) mg/dL NT-Pro-B Natriuret Pep 44 (0-125) pg/mL Total Protein (6.4-8.2) g/dl Albumin (3.4-5.0) g/dl Globulin gm/dL Albumin/Globulin Ratio (1-2) Lipase (73-393) U/L Urine Color Yellow (Yellow) Urine Appearance Clear (Clear) Urine pH 5.5 (5.0-8.0) Ur Specific [place] > or = 1.030 (1.005-1.030) Urine Protein Negative (Negative) Urine Glucose (UA) Negative (Negative) Urine Ketones Negative (Negative) Urine Occult Blood Negative (Negative) Urine Nitrite Negative (Negative) Urine Bilirubin Negative (Negative) Urine Urobilinogen 0.2 (0.2-1.0) Ur Leukocyte Esterase Trace H (Negative) Urine RBC 0-5 (0-5) /hpf Urine WBC 5-10 H (0-5) /hpf Ur Squamous Epith Cells 0-5 (0-5) /hpf Urine Bacteria Few (FEW) /hpf Urine Mucus Few (FEW) /hpf Meds: Medications Generic Name Dose Route Start Last Admin Trade Name Freq PRN Reason Stop Dose Admin Dextrose/Sodium Chloride 1,000 mls @ 125 mls/hr 01/09/21 11:15 Dextrose 5%-Normal Saline IV ASDIRECTED DARIA Sodium Chloride 100 mls @ 60 mls/hr 01/09/21 12:15 01/09/21 12:19 Normal Saline IV 60 mls/hr ASDIRECTED DARIA Administration Discontinued Medications Generic Name Dose Route Start Last Admin Trade Name Freq PRN Reason Stop Dose Admin Dicyclomine HCl 20 mg 01/09/21 11:04 01/09/21 12:46 Bentyl PO 01/09/21 11:05 20 mg ONETIME ONE Administration Nitroglycerin/Dextrose 25 mg in 250 mls @ 6 mls/hr 01/09/21 11:15 Nitroglycerin 25 Mg/D5w 250 Ml IV TITRATE DARIA Protocol 10 MCG/MIN Iopamidol 100 ml 01/09/21 12:04 02/17/21 12:19 Isovue-370 (76%) IVPUSH 01/09/21 12:05 100 ml ONETIME ONE Administration Sodium Chloride 10 ml 01/09/21 12:04 01/09/21 12:19 Saline Flush FLUSH 01/09/21 12:05 10 ml ONETIME ONE Administration - Radiology Interpretation Free Text/Narrative:: 60-year-old female presents to the ED with persistent central retrosternal chest pressure discomfort since yesterday afternoon. It is persisted throughout the evening and throughout the night. She was too uncomfortable to lie flat to sleep. She had to sleep sitting up in an easy chair a good portion of the night. No associated burping or belching. Her last meal was yesterday p.m. which was very minimal. She did not have breakfast this morning. No known history of coronary artery disease. Risk factors would be obesity high cho lesterol and mild hypertension. She had COVID-19 illness back in June 2020 for which she is fully recovered other than slightly altered taste. No past history of DVT or PE. O2 sats are 95% on room air. Blood pressure is mildly elevated. ECG done in the triage nurse reveals possible evidence of an old anteroseptal myocardial infarction with poor R wave progression V1 V2 which could be due to lead placement. Slightly decreased voltage throughout the precordial leads due to thickened chest. No signs of ischemia are evident. Her chest pressure discomfort is associate with pressure underneath the costal margin bilaterally and radiates through to her intrascapular area and her back. This has a strong suggestion of hiatal hernia by history. Plan IV nitroglycerin drip at 10 mcg/min. She will have chest x-ray x2 view and 1 view of the abdomen performed. Routine labs including D-dimer will be done. Given Bentyl 20 mg p.o. She did have 4 baby aspirin chewed at the [facility] this morning. - Re-Assessments/Exams Free Text/Narrative Re-Assessment/Exam: 01/09/21 11:36 chest x-ray is essentially normal. Cardiac silhouette is normal lung hayes are clear. X-rays of the abdomen show evidence of a LAP-BAND on the left side. Appears that the LAP-BAND is disconnected from the port. She has evidence of previous cholecystectomy. Bilateral total hip prostheses are evident. 01/09/21 11:38 Total white count is normal at 5.96. The differential on the auto differential is 56% neutrophils. Hemoglobin 15.4 with hematocrit of 47.4 normal MCV at 88.3. Platelet count 295,000. PT is 10.5 with an INR of 0.98 PTT is 26.3 D-dimer is mildly elevated at 0.78. 01/09/21 11:46 Sodium 139 with a potassium of 4.4 chloride 105 with a bicarb 25. Anion gap is 13.4 BUN is 19 with a creatinine of 0.8 and a GFR greater than 60. Glucose is 95 with a calcium of 9.0. Magnesium is 2.2. Liver function is normal. CK-MB fraction is mildly elevated at 5.6 troponin I is less than 0.017. C-reactive protein is 0.9 BNP is 44 total protein 7.9 with albumin fraction of 3.9. Lipase is normal at 103. Urine is yellow in color leukocyte Estrace trace. Micro is pending 01/09/21 11:51 I have discussed the findings with the patient. Her renal function is normal. We will therefore proceed with CT pulmonary angiogram to rule out PE. I have low clinical suspicion for this. At present she has not had any relief of the central chest discomfort even with the Bentyl given orally. Nitro drip has not helped either. 01/09/21 12:27 the pulmonary angiogram has been completed. No pneumothorax is evident. Cardiac silhouette is within normal limits. For second and third branches of the pulmonary arteries appear to be patent without any evidence of pulmonary embolism. There is no pleural effusion. Visualized portions of the upper abdomen show fatty infiltration of the liver. Gallbladder is absent. Pancreas appears normal spleen appears normal. No intra-abdominal causes present for current complaint of chest pressure discomfort. 01/09/21 12:[address] pulmonary angiogram reveals pulmonary arteries are fairly well opacified. No filling defects are seen to indicate pulmonary embolism. Thoracic aorta shows no aneurysm. Scattered calcified lymph nodes are seen within the mediastinum without any adenopathy. No pericardial t hickening is seen. LAP-BAND is in place. Previous cholecystectomy noted. Lungs show no acute parenchymal changes no pleural effusions are seen. Олег just came to find out that the patient just received her dosage of Bentyl at this time. I am going to discharge her with a prescription for 5 further tablets to be used 1 every 6 hours as needed for similar discomfort. If she continues to have problems she would benefit from seeing gastroenterology or surgeon for upper GI endoscopy. Departure - Departure Time of Disposition: 13:01 Disposition: Home, Self-Care 01 Reason for Transfer *Q: Other Condition: Fair Clinical Impression: Non-cardiac chest pain, Hiatal hernia Prescriptions: Dicyclomine [Bentyl] 20 mg PO Q6H PRN #5 tablet PRN Reason: Abdominal cramps/diarrhea Referrals: Nella Mercado SUBSTANCE ABUSE NURSE [Primary Care Provider] - Forms: ED Department Discharge Additional Instructions: Evaluation in the emergency room this morning in regards to development of central pressure discomfort below the lower one half of sternum since last evening. It persisted throughout the night and made it impossible to lie flat for period of time requiring you to sit in a easy chair. Evaluation in the emergency room reveals a normal ECG with no evidence of ischemia or lack of blood supply to the heart muscle. Chest x-ray also was within normal limits. Lab test done revealed no evidence of heart attack and no signs of heart failure. D-dimer which is a measuring stick for how well we are clotting and breaking down clot was slightly elevated at 0.78 with normal being up to 0.50. Therefore decision made to pursue CT pulmonary angiogram of the chest to rule out blood clots in the lungs and none were found. Therefore I could not find any reason for you to have central chest discomfort and I am still highly suspicious due to the clinical presentation that it is due to stomach partially herniating up into the chest cavity behind the heart through the diaphragm causing your pain syndrome. Hiatal hernia will cause pain or pressure discomfort along the lower costal margins or ribs on both sides and then pressure into the mid back between the shoulder blades as you described. You were given a dose of Bentyl 20 mg tablet before leaving the ED. It was my initial plan to have this given immediately after had seen you in the hopes that it would have provided relief before discharge. At this time go ahead and eat and drink whatever you wish although avoid soda pop as air will rise from the carbon dioxide which may aggravate I hiatal hernia. Prescription written for further Bentyl tablets to be available if you need tube. 1 to be taken every 6 hours as needed for relief of this type of discomfort. You may save the other tablets of for symptoms that might act like this again. Sepsis Event Note (ED) - Evaluation Sepsis Screening Result: No Definite Risk - Focused Exam Vital Signs: Vital Signs Temp Pulse Resp BP Pulse Ox 01/09/21 10:45 36.2 C 81 16 147/95 H 93 L - My Orders Last 24 Hours: My Active Orders 01/09/21 11:14 EKG Documentation Completion [RC] ASDIRECTED EKG 12 Lead [EK] Stat 01/09/21 11:15 Dextrose 5%-0.9% NaCl [Dextrose 5%-Normal Saline] 1,000 ml IV ASDIRECTED 01/09/21 12:15 Sodium Chloride 0.9% [Normal Saline] 100 ml IV ASDIRECTED - Assessment/Plan Last 24 Hours: My Active Orders 01/09/21 11:14 EKG Documentation Completion [RC] ASDIRECTED EKG 12 Lead [EK] Stat 01/09/21 11:15 Dextrose 5%-0.9% NaCl [Dextrose 5%-Normal Saline] 1,000 ml IV ASDIRECTED 01/09/21 12:15 Sodium Chloride 0.9% [Normal Saline] 100 ml IV ASDIRECTED
[2021-01-09] MEDS ORDERED: Dicyclomine 10 MG Cap PO ONE (11:04)
[2021-01-09] MEDS ORDERED: Dextrose 5%-0.9% NaCl 1,000 ML IV SCH (11:15)
[2021-01-09] MEDS ORDERED: Nitroglycerin/D5W 25 MG/250 ML BOTTLE IV SCH (11:15)
--- NOTE | 2021-01-09 11:48 | CR ---
Abdomen: Supine view of the abdomen was obtained. Comparison: Prior abdominal x-ray of 12/30/16. Lap band is in place. Surgical clips are seen from prior cholecystectomy. Infusion catheter is noted exiting within the left upper abdomen which is likely due to disconnected lap band which is stable from prior exam. Bowel gas pattern is normal. Numerous calcifications are seen within the pelvis which are most likely due to phleboliths. Bilateral hip prosthesis are noted. No acute osseous finding is seen. Impression: 1. Presumed disconnected lap band which is stable from prior exam. 2. Previous cholecystectomy. 3. Other findings believed to be incidental as noted above. Diagnostic code #2
--- NOTE | 2021-01-09 11:48 | CR ---
Chest: 2 views of the chest were obtained. Comparison: Previous chest x-ray of 01/09/21. Heart size and mediastinum are normal. Lungs are clear with no acute parenchymal change. Scattered degenerative change is noted within the spine. Lap band is noted which is disconnected. Previous cholecystectomy is noted. Impression: 1. Findings as noted above. 2. Nothing acute is appreciated on 2 view chest x-ray. Diagnostic code #2
[2021-01-09] MEDS ORDERED: Iopamidol 755 Mg/ML 100 ML Bottle IVPUSH ONE (12:04)
[2021-01-09] MEDS ORDERED: Sodium Chloride 0.9% 10 ML Syringe FLUSH ONE (12:04)
[2021-01-09] MEDS ORDERED: Sodium Chloride 0.9% 100 ML IV SCH (12:15)
--- NOTE | 2021-01-09 12:41 | CT ---
CT chest Technique: Multiple axial sections through the chest were obtained. Intravenous contrast was utilized. Study has been performed as a pulmonary angiogram protocol. Findings: Pulmonary arteries are fairly well opacified. No filling defects are seen to indicate pulmonary embolism. Thoracic aorta shows no aneurysm. Scattered calcified lymph nodes are seen within the mediastinum with no adenopathy. No pericardial thickening is seen. Lap band is in place. Previous cholecystectomy is noted. Lungs show no acute parenchymal change. No pleural effusions are seen. Bone window setting shows scattered degenerative change within the spine. No acute osseous finding is appreciated. Impression: 1. Calcifications within the mediastinal lymph nodes with no adenopathy. 2. No findings of pulmonary embolism are seen. 3. Nothing acute is otherwise appreciated. Diagnostic code #2
== END 2021-01-09 13:37 | disposition home or self-care (01) ==
LOC: JD.ED 10:39
DX: K44.9 Diaphragmatic hernia without obstruction or gangrene (principal); I10 Essential (primary) hypertension; Z88.0 Allergy status to penicillin; Z88.1 Allergy status to other antibiotic agents; Z79.899 Other long term (current) drug therapy
CPT/HCPCS: 36415; 71046; 71275; 74018; 80053; 81001; 82553; 83690; 83735; 83880; 84484; 85025; 85379; 85610; 85730; 86140; 93005; 99285; A9270; Q9967; 93010; 99284